=== PATIENT | female | born 1960 | race Caucasian/White ===

== ENCOUNTER 2017-02-23 20:30 | Observation (INO) ==
--- NOTE | 2017-02-23 20:37 | Emergency Department Note ---
Disposition Clinical Impression: Acute exacerbation of chronic obstructive airways disease, Hypercapnia Disposition: Admitted As Inpatient SOB HPI - General Stated Complaint: Difficulty Breathing Time Seen by Provider: 02/23/17 20:30 Source: patient Mode of arrival: private vehicle Limitations: no limitations Nursing Notes Reviewed: Yes Vital Signs Reviewed: Yes - History of Present Illness 57-year-old obese white female presents emergency department via private vehicle complaining of shortness of breath. She says that she has become progressively short of breath as he has gone on. She has been using her nebulizer treatment at home. She says she is out of her rescue inhaler. She currently does not take steroids. She says that this is the fifth To the ER in the last 2 months. She says she has not formally been diagnosed with COPD, but really has not had a chance to see a livestock nutritionist. She has an appointment to see her family doctor tomorrow opening to be referred to a livestock nutritionist. She says that she felt like she has had a mild fever all day and she has had a productive cough. She also wears oxygen at home at 3 L, but tonight started up to 4. - Related Data Home Medications Medication Instructions Recorded Confirmed Cyclobenzaprine [Flexeril] 10 mg PO TID 09/08/16 02/23/17 FLUoxetine HCl [Prozac] 20 mg PO DAILY 09/08/16 02/23/17 Fluticasone/Salmeterol [Advair 1 each IH BID 09/08/16 02/23/17 250-50 Diskus] Liraglutide [Victoza 2-Sergio] 1.8 ml SQ DAILY 09/08/16 02/23/17 Montelukast [Singulair] 10 mg PO DAILY 09/08/16 02/23/17 OxyCODONE/APAP 7.5/325 [Percocet 1 each PO Q6HR PRN 09/08/16 02/23/17 7.5/325 MG] Losartan Potassium [Cozaar] 50 mg PO DAILY 09/30/16 02/23/17 Pravastatin Sodium [Pravachol] 40 mg PO DAILY 09/30/16 02/23/17 Albuterol Neb [Proventil Neb] 2.5 mg IH QID PRN 12/01/16 02/23/17 Esomeprazole Magnesium [Nexium 22.3 mg PO DAILY 12/01/16 02/23/17 24Hr] Oxygen 2 l NS HS 12/01/16 02/23/17 Insulin Regular U-500 [HumuLIN R 60 unit SQ TIDWM 12/02/16 02/23/17 U-500] Previous Rx's Medication Instructions Recorded Ipratropium Neb [Atrovent Neb] 0.5 mg IH Q6HR #60 vial.neb 09/30/16 Albuterol Sulfate [Proair 90 mcg IH Q4-6H PRN #1 aer.pow.ba 10/05/16 Respiclick] Alprazolam [Xanax 0.25 MG Tablet] 0.25 mg PO HS PRN #7 tablet 12/06/16 Rivaroxaban [Xarelto] 20 mg PO 1700 #30 tablet 12/06/16 LORazepam [Ativan] 1 mg PO TID PRN #6 tablet 02/10/17 Allergies Allergy/AdvReac Type Severity Reaction Status Date / Time cetirizine [From [facility]] Allergy Swelling Verified 02/23/17 20:33 of Lip/Tongue/Throat codeine AdvReac Nausea Verified 02/23/17 20:33 lisinopril AdvReac Cough Verified 02/23/17 20:33 All systems ED: reviewed and negative except as stated. Constitutional: Reports: as per HPI, fever. Denies: chills, weakness, weight change Eyes: Denies: eye pain, eye discharge, vision change ENT ED: Denies: ear pain, throat pain, dental pain, hearing loss, epistaxis, congestion, dysphagia Cardiovascular: Denies: chest pain, palpitations, dyspnea on exertion, edema, syncope Respiratory: Reports: as per HPI, cough, dyspnea, wheezes, sputum production. Denies: hemoptysis Gastrointestinal: Denies: abdominal pain, nausea, vomiting, diarrhea, constipation, hematemesis, melena, hematochezia Genitourinary: Denies: dysuria, frequency, hematuria, discharge Musculoskeletal: Denies: back pain, neck pain, arthralgia, myalgia Integumentary: Denies: rash, abrasion, lesions Neurological: Denies: headache, weakness, numbness, paresthesias, confusion, abnormal gait, vertigo Psychiatric: Denies: anxiety, depression, suicidal thoughts, homicidal thoughts , auditory hallucinations, visual hallucinations Endocrine: Denies: fatigue Hematological/Lymphatic: Denies: easy bleeding, easy bruising Allergic/Immunologic: Denies: facial swelling, urticaria Past Medical History - Past Medical History Medical history: Reports: arthritis, asthma, COPD, diabetes, GERD, hyperlipidemia, hypertension, osteoporosis, venous stasis, other Surgical history: Reports: other Psychiatric history: Reports: anxiety, depression, other DIE SETTER history: Reports: non-contributory - Social History Smoking Status: Former smoker Smokeless Tobacco Status: No Alcohol use: Reports: none Drug use: Reports: none Physical Exam - General Limitations: no limitations General appearance: alert, in no apparent distress - Head Head exam: atraumatic, normocephalic, normal inspection - Eye Eye exam: Present: normal appearance, PERRL, EOMI - ENT ENT exam: normal exam, normal oropharynx, mucous membranes moist - Neck Neck exam: Present: normal inspection, full ROM, trachea midline - Chest Chest inspection: Present: normal inspection, symmetric chest wall rise. Absent : tenderness - Respiratory Respiratory exam: Present: wheezes, accessory muscle use, other (Decreased breath sounds, but equal bilaterally. Audible wheezes. No rhonchi or rales.). Absent: respiratory distress, stridor - Cardiovascular Cardiovascular exam: Present: regular rate, normal rhythm, normal heart sounds - Abdominal Exam Abdominal exam: Present: soft, Non-Tender. Absent: tenderness, distention, guarding, rebound, rigidity - Extremities Exam Extremities exam: Present: full ROM, pedal edema - Back Exam Back exam: Present: normal inspection, full ROM. Absent: tenderness - Neurological Exam Neurological exam: Present: alert, oriented X3, CN II-XII intact. Absent: motor sensory deficit - Psychiatric Psychiatric exam: Present: normal affect, normal mood - Skin Skin exam: Present: warm, dry, intact, normal color Course Vital Signs Temperature 98.2 F 02/23/17 20:30 Pulse Rate 102 02/23/17 20:30 Respiratory Rate 28 02/23/17 20:30 Blood Pressure 166/103 02/23/17 20:30 O2 Sat by Pulse Oximetry 93 02/23/17 20:30 Temperature 98.5 F 02/23/17 23:45 Pulse Rate 95 02/23/17 23:45 Respiratory Rate 20 02/23/17 23:45 Blood Pressure 131/79 02/23/17 23:45 O2 Sat by Pulse Oximetry 92 02/23/17 23:45 Oxygen Delivery Oxygen Delivery Bipap Shortness of Breath/Dyspnea - Lab Data Result diagrams: 02/23/17 20:52 02/23/17 20:52 Lab Results 02/23/17 02/23/17 02/23/17 Range/Units 20:38 20:52 20:52 WBC 11.5 H (4.3-11.1) K/mcL RBC 4.88 (3.82-4.97) M/mcL Hgb 10.3 L (11.5-15.4) g/dL Hct 37.3 (35.3-44.9) % MCV 76.4 L (83.0-100.0) fL MCH 21.1 L (28.0-33.3) pg MCHC 27.6 L (31.6-35.5) g/dL RDW 19.9 H (11.5-14.5) % Plt Count 357 (140-400) K/mcL MPV 9.9 (9.4-12.4) fL Immature Gran % 0.7 (0-4) % Seg Neutrophils % 67.6 % Lymphocytes % 20.1 % Monocytes % 8.4 % Eosinophils % 2.5 % Basophils % 0.7 % Neutrophils # 7.8 (1.6-8.9) K/mcL Lymphocytes # 2.3 (0.6-4.6) K/mcL Monocytes # 1.0 (0.0-1.3) K/mcL Eosinophils # 0.3 (0.0-0.6) K/mcL Basophils # 0.1 (0.0-0.2) K/mcL ABG pH 7.29 L (7.32-7.45) pH Units ABG pCO2 71 H* (35-45) mmHg ABG pO2 73 L (85-104) mmHg ABG HCO3 33.9 H (21-27) mEQ/L ABG Total CO2 36.0 H (20-26) mEq/L ABG O2 Saturation 92 L (95-98) % ABG Base Excess 5.0 H (-2.0 to 3.0) mEq/L Liter Flow 4 L/MIN Blood Gas Modality NC Inspired O2 36 % Sodium 139 (136-145) mEq/L Potassium 4.5 (3.5-4.5) mEq/L Chloride 98 (98-109) mEq/L Carbon Dioxide 30 H (19-29) mEq/L BUN 16 (7-20) mg/dL Creatinine 0.72 (0.57-1.11) mg/dL Est GFR ( Amer) > 60 (> 60) Est GFR (Non-Af Amer) > 60 (> 60) BUN/Creatinine Ratio 22 (6-26) Glucose 136 H (70-99) mg/dL Calculated Osmolality 291 (280-300) Calcium 9.1 (8.6-10.8) mg/dL Total Bilirubin 0.3 (0.2-1.2) mg/dL AST 13 (5-34) Units/L ALT 13 (0-55) Units/L Alkaline Phosphatase 113 (38-126) Units/L B-Natriuretic Peptide (0-100) pg/mL Serum Total Protein 7.7 (6.0-8.3) g/dL Albumin 3.1 L (3.5-5.0) g/dL Globulin 4.6 H (2.4-3.5) g/dL Albumin/Globulin Ratio 0.7 L (1.1-2.2) 02/23/17 Range/Units 20:52 WBC (4.3-11.1) K/mcL RBC (3.82-4.97) M/mcL Hgb (11.5-15.4) g/dL Hct (35.3-44.9) % MCV (83.0-100.0) fL MCH (28.0-33.3) pg MCHC (31.6-35.5) g/dL RDW (11.5-14.5) % Plt Count (140-400) K/mcL MPV (9.4-12.4) fL Immature Gran % (0-4) % Seg Neutrophils % % Lymphocytes % % Monocytes % % Eosinophils % % Basophils % % Neutrophils # (1.6-8.9) K/mcL Lymphocytes # (0.6-4.6) K/mcL Monocytes # (0.0-1.3) K/mcL Eosinophils # (0.0-0.6) K/mcL Basophils # (0.0-0.2) K/mcL ABG pH (7.32-7.45) pH Units ABG pCO2 (35-45) mmHg ABG pO2 (85-104) mmHg ABG HCO3 (21-27) mEQ/L ABG Total CO2 (20-26) mEq/L ABG O2 Saturation (95-98) % ABG Base Excess (-2.0 to 3.0) mEq/L Liter Flow L/MIN Blood Gas Modality Inspired O2 % Sodium (136-145) mEq/L Potassium (3.5-4.5) mEq/L Chloride (98-109) mEq/L Carbon Dioxide (19-29) mEq/L BUN (7-20) mg/dL Creatinine (0.57-1.11) mg/dL Est GFR ( Amer) (> 60) Est GFR (Non-Af Amer) (> 60) BUN/Creatinine Ratio (6-26) Glucose (70-99) mg/dL Calculated Osmolality (280-300) Calcium (8.6-10.8) mg/dL Total Bilirubin (0.2-1.2) mg/dL AST (5-34) Units/L ALT (0-55) Units/L Alkaline Phosphatase (38-126) Units/L B-Natriuretic Peptide 87 (0-100) pg/mL Serum Total Protein (6.0-8.3) g/dL Albumin (3.5-5.0) g/dL Globulin (2.4-3.5) g/dL Albumin/Globulin Ratio (1.1-2.2)
[2017-02-23] MEDS ORDERED: Ipratropium/Albuterol Neb 3 ML IH ONE (20:38)
[2017-02-23 21:06] LABS: Basophils # 0.1 K/mcL (0.0-0.2); Basophils % 0.7 %; Eosinophils # 0.3 K/mcL (0.0-0.6); Eosinophils % 2.5 %; Hematocrit 37.3 % (35.3-44.9); Hemoglobin 10.3 g/dL (11.5-15.4); Immature Granulocytes % 0.7 % (0-4); Lymphocytes # 2.3 K/mcL (0.6-4.6); Lymphocytes % 20.1 %; Mean Corpuscular HGB Conc 27.6 g/dL (31.6-35.5); Mean Corpuscular Hemoglobin 21.1 pg (28.0-33.3); Mean Corpuscular Volume 76.4 fL (83.0-100.0); Mean Platelet Volume 9.9 fL (9.4-12.4); Monocytes % 8.4 %; Neutrophils # 7.8 K/mcL (1.6-8.9); Platelet Count 357 K/mcL (140-400); Red Blood Count 4.88 M/mcL (3.82-4.97); Red Cell Distribution Width 19.9 % (11.5-14.5); Segmented Neutrophils % 67.6 %
[2017-02-23 21:16] LABS: Alanine Aminotransferase 13 Units/L (0-55); Albumin 3.1 g/dL (3.5-5.0); Albumin/Globulin Ratio 0.7 (1.1-2.2); Alkaline Phosphatase 113 Units/L (38-126); Aspartate Amino Transferase 13 Units/L (5-34); BUN/Creatinine Ratio 22 (6-26); Bilirubin,Total 0.3 mg/dL (0.2-1.2); Blood Urea Nitrogen 16 mg/dL (7-20); Calcium 9.1 mg/dL (8.6-10.8); Carbon Dioxide 30 mEq/L (19-29); Chloride 98 mEq/L (98-109); Globulin 4.6 g/dL (2.4-3.5); Glucose 136 mg/dL (70-99); Osmolality,Calculated 291 (280-300); Potassium 4.5 mEq/L (3.5-4.5); Sodium 139 mEq/L (136-145); Total Protein 7.7 g/dL (6.0-8.3); eGFR For African Americans > 60 (> 60); eGFR For Non-African Americans > 60 (> 60)
[2017-02-23 21:28] LABS: ABG PH 7.29 pH Units (7.32-7.45)
[2017-02-23 21:29] LABS: ABG HCO3 33.9 mEQ/L (21-27); ABG Oxygen Saturation 92 % (95-98); ABG PO2 73 mmHg (85-104)
[2017-02-23 21:30] LABS: Blood Gas Liter Flow 4 L/MIN
[2017-02-23 21:31] LABS: ABG PCO2 71 mmHg (35-45)
[2017-02-23 21:34] LABS: Blood Gas FiO2 36 %
[2017-02-24] MEDS ORDERED: *HR* OxyCODONE/APAP 7.5/325 TABLET PO PRN ×2 (01:32→02:23)
[2017-02-24] MEDS ORDERED: *HR* Morphine 2 MG/ML SYRINGE IVP PRN (01:32)
[2017-02-24] MEDS ORDERED: Ondansetron ODT 4 MG TAB.RAPDIS SL PRN (01:32)
[2017-02-24] MEDS ORDERED: *HR* Promethazine 25 MG/ML VIAL IVP PRN (01:32)
[2017-02-24] MEDS ORDERED: (Albuterol Sulfate [Proair Respiclick] 90 MCG) IH PRN (01:32)
[2017-02-24] MEDS ORDERED: *HR* LORazepam 1 MG TABLET PO PRN (01:32)
[2017-02-24] MEDS ORDERED: *HR* HYDROcodone/Acet 5/325 mg TABLET PO PRN (01:32)
[2017-02-24] MEDS ORDERED: Naloxone 0.4 MG/ML INJ IVP PRN (01:32)
[2017-02-24] MEDS ORDERED: Acetaminophen 325 MG TABLET PO PRN (01:32)
[2017-02-24] MEDS ORDERED: Ipratropium Neb 0.5 MG NEBULIZER IH SCH (04:00)
[2017-02-24] MEDS ORDERED: Albuterol 2.5 MG/3 ML NEBULIZER IH SCH (05:00)
[2017-02-24] MEDS: Ipratropium/Albuterol Neb 3 ML IH SCH ×2 (05:12→11:06)
[2017-02-24 08:27] LABS: ABG PH 7.25 pH Units (7.32-7.45)
[2017-02-24 08:28] LABS: ABG HCO3 35.9 mEQ/L (21-27); ABG PCO2 81 mmHg (35-45); ABG PO2 101 mmHg (85-104); ABG TCO2 38.4 mEq/L (20-26)
[2017-02-24 08:29] LABS: ABG Base Excess 5.7 mEq/L (-2.0 to 3.0); ABG Oxygen Saturation 96 % (95-98)
[2017-02-24] MEDS ORDERED: FLUoxetine 20 MG CAPSULE PO SCH (09:00)
[2017-02-24] MEDS ORDERED: (Liraglutide [Victoza 2-Pak] 1.8 ML) SQ SCH (09:00)
[2017-02-24] MEDS ORDERED: Budesonide/Formoterol 80/4.5 MDI IH SCH (10:00)
[2017-02-24 10:29] LABS: ABG PH 7.24 pH Units (7.32-7.45)
[2017-02-24 10:30] LABS: ABG PCO2 82 mmHg (35-45)
[2017-02-24 10:31] LABS: ABG Base Excess 4.3 mEq/L (-2.0 to 3.0); ABG HCO3 34.6 mEQ/L (21-27); ABG Oxygen Saturation 95 % (95-98); ABG PO2 93 mmHg (85-104); ABG TCO2 37.1 mEq/L (20-26)
[2017-02-24 11:47] VITALS: BP 116/72
--- NOTE | 2017-02-24 14:17 | Internal Med History&Physical ---
Date of Encounter: 02/24/17 Time of Encounter: 10:00 Assessment and Plan (1) Acute on chronic respiratory failure with hypoxia and hypercapnia Current visit: No Status: Acute (2) Emphysema of lung Current visit: No Status: Chronic Qualifiers: Emphysema type: unspecified Qualified Code(s): J43.9 - Emphysema, unspecified (3) Venous stasis ulcer of lower extremity Current visit: No Status: Chronic Qualifiers: Laterality: unspecified laterality Qualified Code(s): I83.009 - Varicose veins of unspecified lower extremity with ulcer of unspecified site (4) Morbid obesity with BMI of 60.0-69.9, adult Current visit: No Status: Chronic (5) Diabetes mellitus Current visit: No Status: Acute Qualifiers: Diabetes mellitus type: type 2 Diabetes mellitus complication status: with unspecified complications Diabetes mellitus skilled nursing insulin use: with skilled nursing use Qualified Code(s): E11.8 - Type 2 diabetes mellitus with unspecified complications; Z79.4 - detention (current) use of insulin (6) Hypercapnia Current visit: Yes Status: Acute Internal Medicine - H&P: HPI Chief complaint: Patient presented to the emergency room early this able chief complaint kathy Admitted From: Emergency Dept Plans for Post Hospital Care: Home History of present illness: Ms. Villa is a 57 year old female Patient had a history of breathing problems. She is not seen a addiction medicine physician or assistant professor of forestry. She was introduced to the floor on CPAP because her PTH was low her CO2 was high but her oxygen was stable. It was then noted that the patient was experiencing runs of V. tach and a pulse was explained to me by nursing I did not see it myself. But I did see several runs of V. tach 4-6 seconds. In addition she whirly obese and her 55 kg. Chest x-ray showed bilateral infiltrates. Past Med Surg Social Fam HX - Past Medical History Medical history: arthritis, asthma, COPD, diabetes, GERD, hyperlipidemia, hypertension, osteoporosis, venous stasis, other Psychiatric history: anxiety, depression, other - Past Surgical History Surgical History: other - Social History Smoking Status: Former smoker Smokeless Tobacco Status: No Alcohol use: none Drug use: none - Family History Mother History Unknown: Yes Father History Unknown: Yes Internal Medicine - H&P: Meds Cyclobenzaprine [Flexeril] 10 mg PO TID 09/08/16 [History] FLUoxetine HCl [Prozac] 20 mg PO DAILY 09/08/16 [History] Fluticasone/Salmeterol [Advair 250-50 Diskus] 1 each IH BID 09/08/16 [History] Liraglutide [Victoza 2-Sergio] 1.8 ml SQ DAILY 09/08/16 [History] Montelukast [Singulair] 10 mg PO DAILY 09/08/16 [History] OxyCODONE/APAP 7.5/325 [Percocet 7.5/325 MG] 1 each PO Q6HR PRN 09/08/16 [ History] Ipratropium Neb [Atrovent Neb] 0.5 mg IH Q6HR #60 vial.neb 09/30/16 [Rx] Losartan Potassium [Cozaar] 50 mg PO DAILY 09/30/16 [History] Pravastatin Sodium [Pravachol] 40 mg PO DAILY 09/30/16 [History] Albuterol Sulfate [Proair Respiclick] 90 mcg IH Q4-6H PRN #1 aer.pow.ba [Rx] Albuterol Neb [Proventil Neb] 2.5 mg IH QID PRN 12/01/16 [History] Esomeprazole Magnesium [Nexium 24Hr] 22.3 mg PO DAILY 12/01/16 [History] Oxygen 2 l NS HS 12/01/16 [History] Insulin Regular U-500 [HumuLIN R U-500] 60 unit SQ TIDWM 12/02/16 [History] Alprazolam [Xanax 0.25 MG Tablet] 0.25 mg PO HS PRN #7 tablet 12/06/16 [Rx] Rivaroxaban [Xarelto] 20 mg PO 1700 #30 tablet 12/06/16 [Rx] LORazepam [Ativan] 1 mg PO TID PRN #6 tablet 02/10/17 [Rx] Allergies cetirizine [From Zyrtec] Allergy (Verified 02/23/17 20:33) Swelling of Lip/Tongue/Throat codeine Adverse Reaction (Verified 02/23/17 20:33) Nausea lisinopril Adverse Reaction (Verified 02/23/17 20:33) Cough All Systems PM: A 10-system review of systems was performed and is negative for pertinent findings except as documented above in the HPI. - Constitutional Vitals: Temp Pulse Resp BP Pulse Ox 97.7 F 93 24 116/72 94 02/24/17 11:00 02/24/17 11:00 02/24/17 11:00 02/24/17 11:00 02/24/17 11:00 - Head Head exam: Present: atraumatic, normocephalic - Neck Neck exam general surgery: Present: supple, trachea midline. Absent: lymphadenopathy - Respiratory Respiratory exam: Present: CTAB. Absent: accessory muscle use, rales, rhonchi, wheezes - Cardiovascular Cardiovascular exam: Present: RRR, +S1, +S2. Absent: diastolic murmur, gallop, rubs, systolic murmur Internal Med - H&P Results - Labs CBC & Chem 7: 02/23/17 20:52 02/23/17 20:52 Labs: lab Does not look bad .see abgs . - ABG Interpretation ABG results: 02/24/17 02/24/17 08:05 10:10 ABG pH 7.25 L 7.24 L ABG pCO2 81 H* 82 H* ABG pO2 101 93 ABG HCO3 35.9 H 34.6 H ABG Total CO2 38.4 H 37.1 H ABG O2 Saturation 96 95 ABG Base Excess 5.7 H 4.3 H
--- NOTE | 2017-02-24 14:45 | Discharge Summary ---
Date of Encounter: 02/24/17 Time of Encounter: 14:43 - Discharge Diagnosis (1) Acute on chronic respiratory failure with hypoxia and hypercapnia Priority: Primary Status: Acute Comments: Patient was admitted for increasing shortness of breath and multiple other medical problems (2) Emphysema of lung Priority: Primary Status: Chronic Comments: There is a strong possibility but she is not seen roundsman Qualifiers: Emphysema type: unspecified Qualified Code(s): J43.9 - Emphysema, unspecified (3) Venous stasis ulcer of lower extremity Priority: Secondary Status: Chronic Comments: By his Qualifiers: Laterality: unspecified laterality Qualified Code(s): I83.009 - Varicose veins of unspecified lower extremity with ulcer of unspecified site (4) Morbid obesity with BMI of 60.0-69.9, adult Priority: Secondary Status: Chronic Comments: Noted atrophy associated with sleep apnea (5) Diabetes mellitus Priority: Secondary Status: Acute Qualifiers: Diabetes mellitus type: type 2 Diabetes mellitus complication status: with unspecified complications Diabetes mellitus operations intelligence insulin use: with fci use Qualified Code(s): E11.8 - Type 2 diabetes mellitus with unspecified complications; Z79.4 - hair specialist (current) use of insulin (6) Hypercapnia Priority: Primary Status: Acute Comments: CABG - Discharge Medications Home Medications: Cyclobenzaprine [Flexeril] 10 mg PO TID 09/08/16 [History] FLUoxetine HCl [Prozac] 20 mg PO DAILY 09/08/16 [History] Fluticasone/Salmeterol [Advair 250-50 Diskus] 1 each IH BID 09/08/16 [History] Liraglutide [Victoza 2-Sergio] 1.8 ml SQ DAILY 09/08/16 [History] Montelukast [Singulair] 10 mg PO DAILY 09/08/16 [History] OxyCODONE/APAP 7.5/325 [Percocet 7.5/325 MG] 1 each PO Q6HR PRN 09/08/16 [ History] Ipratropium Neb [Atrovent Neb] 0.5 mg IH Q6HR #60 vial.neb 09/30/16 [Rx] Losartan Potassium [Cozaar] 50 mg PO DAILY 09/30/16 [History] Pravastatin Sodium [Pravachol] 40 mg PO DAILY 09/30/16 [History] Albuterol Sulfate [Proair Respiclick] 90 mcg IH Q4-6H PRN #1 aer.pow.ba [Rx] Albuterol Neb [Proventil Neb] 2.5 mg IH QID PRN 12/01/16 [History] Esomeprazole Magnesium [Nexium 24Hr] 22.3 mg PO DAILY 12/01/16 [History] Oxygen 2 l NS HS 12/01/16 [History] Insulin Regular U-500 [HumuLIN R U-500] 60 unit SQ TIDWM 12/02/16 [History] Alprazolam [Xanax 0.25 MG Tablet] 0.25 mg PO HS PRN #7 tablet 12/06/16 [Rx] Rivaroxaban [Xarelto] 20 mg PO 1700 #30 tablet 12/06/16 [Rx] LORazepam [Ativan] 1 mg PO TID PRN #6 tablet 02/10/17 [Rx] Allergies/Adverse Reactions: Allergies cetirizine [From yrte] Allergy (Verified 02/23/17 20:33) Swelling of Lip/Tongue/Throat codeine Adverse Reaction (Verified 02/23/17 20:33) Nausea lisinopril Adverse Reaction (Verified 02/23/17 20:33) Cough Date of admission: 02/23/17 22:33 Primary care physician: Kadie Hurtado Discharging clinician: Jonn Baires Anticipated date of discharge: 02/24/17 - Patient Status Disposition: Transfer Other Condition: Serious Functional capacity at discharge: bed bound Overall status at discharge: patient is not back to baseline - Discharge Instructions Forms: ED Satisfaction Letter - Diet and Activity Activity: other Diet: advance to your usual diet, diabetic diet Interval History: Patient actually was warm and dry vital signs were stable but she was having 4- 6 second runs of V. tach occasional Gaston's which I did not notice myself. She has chest x-ray shows possible bilateral infiltrates. The patient has been increasingly short of breath. Therefore she was immediately set up for transfer [place] [facility] is not seen a roundsman or quality auditor. Hospital course: Ms. Villa is a 57 year old female She was here brief period time monitored her and rechecked her ABGs. She actually was completely alert and oriented was warm and dry to the touch. But I will work to be sure she was worse she could be seen for subspecialty care. - Time Spent with Patient Total time spent providing and/or coordinating discharge services: Less than 30 minutes - Constitutional Vitals: Temp Pulse Resp BP Pulse Ox 97.7 F 93 24 116/72 94 02/24/17 11:00 02/24/17 11:00 02/24/17 11:00 02/24/17 11:00 02/24/17 11:00 - Head Head exam: Present: atraumatic, normal inspection, normocephalic - Respiratory Respiratory exam: Present: decreased breath sounds, CTAB. Absent: accessory muscle use, rales, rhonchi, wheezes - Cardiovascular Cardiovascular exam: Present: RRR, +S1, +S2. Absent: diastolic murmur, gallop, rubs, systolic murmur
[2017-02-24] MEDS ORDERED: *HR* Rivaroxaban 10 MG TABLET PO SCH (17:00)
[2017-02-24] MEDS ORDERED: NON-FORMULARY MEDICATION 1 EACH EACH (Oxygen [Oxygen] 2 L) NS SCH (21:00)
== END 2017-02-24 14:30 | disposition short-term general hospital (02) ==
LOC: INPGRE 20:30 → EMEROOGRE 20:30 → INPGRE 23:08
PROVIDERS: ADMIT Internal Medicine; ATTEND Internal Medicine

== ENCOUNTER 2017-05-26 14:08 | Inpatient (IN) ==
[2017-05-26 14:56] LABS: Basophils # 0.1 K/mcL (0.0-0.2); Basophils % 0.8 %; Eosinophils # 0.3 K/mcL (0.0-0.6); Eosinophils % 2.6 %; Hematocrit 34.4 % (35.3-44.9); Hemoglobin 10.2 g/dL (11.5-15.4); Immature Granulocytes % 0.4 % (0-4); Lymphocytes # 2.1 K/mcL (0.6-4.6); Lymphocytes % 18.4 %; Mean Corpuscular HGB Conc 29.7 g/dL (31.6-35.5); Mean Corpuscular Hemoglobin 22.5 pg (28.0-33.3); Mean Corpuscular Volume 75.8 fL (83.0-100.0); Mean Platelet Volume 9.5 fL (9.4-12.4); Monocytes # 0.7 K/mcL (0.0-1.3); Monocytes % 6.5 %; Neutrophils # 8.1 K/mcL (1.6-8.9); Platelet Count 380 K/mcL (140-400); Red Blood Count 4.54 M/mcL (3.82-4.97); Red Cell Distribution Width 19.9 % (11.5-14.5); Segmented Neutrophils % 71.3 %
[2017-05-26 15:01] LABS: INR 1.5; Prothrombin Time 16.7 Seconds (9.4-12.1)
[2017-05-26 15:11] LABS: BUN/Creatinine Ratio 17 (6-26); Blood Urea Nitrogen 12 mg/dL (7-20); Calcium 9.4 mg/dL (8.6-10.8); Carbon Dioxide 35 mEq/L (19-29); Chloride 97 mEq/L (98-109); Glucose 108 mg/dL (70-99); Osmolality,Calculated 292 (280-300); Potassium 3.7 mEq/L (3.5-4.5); Sodium 141 mEq/L (136-145); eGFR For African Americans > 60 (> 60); eGFR For Non-African Americans > 60 (> 60)
[2017-05-26] MEDS ORDERED: Ampicillin/Sulbactam 3,000 MG in 0.9 % Sodium Chloride Mini Bag 100 ML IVPB ONE (16:41)
--- NOTE | 2017-05-26 16:45 | Emergency Department Note ---
Disposition Clinical Impression: Cellulitis of left leg Disposition: Admitted As Inpatient Condition: Fair Referrals: Kadie Hurtado MD [Primary Care Provider] - Forms: ED Satisfaction Letter Time of Disposition: 16:53 Extremity Problem HPI - General Chief complaint: ED Extremity Problem,Nontraumatic Stated complaint: leg problem Time Seen by Provider: 05/26/17 14:33 Source: patient, family Limitations: no limitations Nursing Notes Reviewed: Yes Vital Signs Reviewed: Yes - History of Present Illness HPI Narrative: Call from wound care Dr. Mckeon who indicated that he was treating a patient and has for several months for open wounds on her left lower extremity. She has a great deal of swelling. She has been oozing serous fluid for several weeks. He states that he put her on doxycycline and ciprofloxacin orally 2-1/2 weeks ago for cellulitis but she is worsened and is now very tender over the medial aspect of her left ankle he is afraid that she needs IV antibiotics and hospitalization. 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 She did not know that she had a fever. She is diabetic and states her sugars have been in the 250s range. Wound care doctor also indicated that the patient had been evaluated with Doppler for DVT one week ago that was normal. She has a history of DVT and is on several toe. She has been compliant with that medication. Pt Subjective Complaint: extremity pain, extremity swelling Onset (ago): month(s) Consistency: constant Injury Location: left, lower extremity Pain Scale: 5 Quality: burning Improves with: nothing Worsens with: use Associated symptoms: Reports: denies other symptoms - Related Data Home Medications Medication Instructions Recorded Confirmed Cyclobenzaprine [Flexeril] 10 mg PO TID 09/08/16 05/26/17 FLUoxetine HCl [Prozac] 40 mg PO DAILY 09/08/16 05/26/17 Montelukast [Singulair] 10 mg PO DAILY 09/08/16 05/26/17 OxyCODONE/APAP 7.5/325 [Percocet 1 each PO Q6HR PRN 09/08/16 05/26/17 7.5/325 MG] Losartan Potassium [Cozaar] 50 mg PO DAILY 09/30/16 05/26/17 Pravastatin Sodium [Pravachol] 40 mg PO DAILY 09/30/16 05/26/17 Albuterol Neb [Proventil Neb] 2.5 mg IH QID PRN 12/01/16 05/26/17 Esomeprazole Magnesium [Nexium 22.3 mg PO DAILY 12/01/16 05/26/17 24Hr] Oxygen 2 l NS HS 12/01/16 05/26/17 Insulin Regular U-500 [HumuLIN R 60 unit SQ TIDWM 12/02/16 05/26/17 U-500] Budesonide/Formoterol 160/4.5 2 puff IH BIDR 03/10/17 05/26/17 [Symbicort 160/4.5] Folic Acid 1 mg PO DAILY 03/10/17 05/26/17 Ipratropium/Albuterol Neb [Duoneb] 3 ml IH QID 03/10/17 05/26/17 Potassium 495 mg PO TID 03/10/17 05/26/17 Furosemide [Lasix] 40 mg PO 1700 05/26/17 05/26/17 Furosemide [Lasix] 80 mg PO DAILY 05/26/17 05/26/17 Rivaroxaban [Xarelto] 20 mg PO HS 05/26/17 05/26/17 Previous Rx's Medication Instructions Recorded Albuterol Sulfate [Proair 90 mcg IH Q4-6H PRN #1 aer.[email or web address] 10/05/16 Respiclick] Ipratropium/Albuterol Neb [Duoneb] 3 ml IH Q6HR #30 vial.neb 04/06/17 Allergies Allergy/AdvReac Type Severity Reaction Status Date / Time cetirizine [From [facility]] Allergy Swelling Verified 05/26/17 14:43 of Lip/Tongue/Throat codeine AdvReac Nausea Verified 05/26/17 14:43 lisinopril AdvReac Cough Verified 05/26/17 14:43 All systems ED: reviewed and negative except as stated. 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 Skin color is pink. Appears well hydrated, body habitus orbitally obese . Non toxic appearing. Head: Normocephalic and atraumatic. External ear exam normal Nose: Nose normal. Mouth/Throat: Uvula is midline, oropharynx is clear and moist and mucous membranes are normal. Eyes: Conjunctivae nl, extraocular motions and lids are normal. Pupils are equal , round, and reactive to light. Neck: Normal range of motion and phonation normal. Neck supple. Cardiovascular: Normal rate, regular rhythm, normal heart sounds. Pulmonary/Chest: No Respiratory distress. Respiratory Effort normal and breath sounds clear. Abdominal: Soft. Normal appearance and bowel sounds are normal. no tenderness, no masses, no guarding, no rebound Musculoskeletal: Good distal pulses. Soft compartments. Brisk cap refill. Extremities: Normal range of motion.Intact peripheral pulses. Extreme dependent bilateral lower extremity Edema. Extremity skin color nl, no calf tenderness or palpable cords. The left lower extremity has open wounds that are constantly oozing small amount of serous fluid. She is brightly erythematous, warm, and very tender to palpation over a portion of the open wound located over the medial aspect of her ankle. She has no significant discomfort with movement of her ankle no signs of osteomyelitis. She is nontender over the sole of the foot or calcaneus area. She is nontender over the region of her left calf. Oozing fluid is serous without being purulent Foot is warm and capillary refill distally is quick Neurological: Patient is alert and oriented without evidence of obvious motor deficits Skin: Skin is warm, dry and intact. color is normal, cap refill is quick Psychiatric: Patient has normal mood and affect. Patient speech is normal and behavior is normal. Thought content normal. - General Limitations: no limitations General appearance: alert, in no apparent distress - Head Head exam: atraumatic, normocephalic - Eye Eye exam: Present: normal appearance, PERRL, EOMI - ENT ENT exam: normal exam, normal oropharynx - Neck Neck exam: Present: normal inspection - Chest Chest inspection: Present: normal inspection, symmetric chest wall rise - Respiratory Respiratory exam: Present: normal lung sounds bilaterally. Absent: respiratory distress, wheezes - Cardiovascular Cardiovascular exam: Present: regular rate, normal rhythm - Abdominal Exam Abdominal exam: Present: soft, Non-Tender, normal bowel sounds - Extremities Exam Extremities exam: Present: tenderness, normal capillary refill, pedal edema. Absent: calf tenderness Course - Reevaluation(s) Reevaluation #1: She will require hospitalization since she was treated with doxycycline recently and has worsened on antibiotics orally. Treatment failure. She also had doubling of her Lasix from 80 mg to 160 daily. I spoke with Dr. Baires who is here and he indicated that he would accept the patient observation admission for treatment with IV antibiotics. We discussed orders and he would like me to enter these into the computer. He would like the Unasyn 1.5 g every 6 hours and requested that is about to be continued. Time: 16:52 Vital Signs Temperature 99.9 F H 05/26/17 14:37 Pulse Rate 83 05/26/17 14:37 Respiratory Rate 16 05/26/17 14:37 Blood Pressure 122/84 05/26/17 14:37 O2 Sat by Pulse Oximetry 90 05/26/17 14:37 Temperature 99.9 F H 05/26/17 14:37 Pulse Rate 83 05/26/17 14:37 Respiratory Rate 16 05/26/17 14:37 Blood Pressure 122/84 05/26/17 14:37 O2 Sat by Pulse Oximetry 90 05/26/17 14:37 Oxygen Delivery Oxygen Delivery Room Air Extremity Problem, Nontraumati - [facility] Narrative Medical decision making narrative: Patient has evidence of cellulitis and has had an outpatient failure of double antibiotics. She will require hospitalization. I spoke with Dr. Yu initially and then Dequan for the admission. Patient is agreeable to plan. - Medical Records Medical records reviewed: Yes I reviewed the patient's medical records. - Lab Data Lab results reviewed: Yes I reviewed the patient's lab results. Result diagrams: 05/26/17 14:45 05/26/17 14:45 Lab Results 05/26/17 05/26/17 05/26/17 Range/Units 14:45 14:45 14:45 WBC 11.4 H (4.3-11.1) K/mcL RBC 4.54 (3.82-4.97) M/mcL Hgb 10.2 L (11.5-15.4) g/dL Hct 34.4 L (35.3-44.9) % MCV 75.8 L (83.0-100.0) fL MCH 22.5 L (28.0-33.3) pg MCHC 29.7 L (31.6-35.5) g/dL RDW 19.9 H (11.5-14.5) % Plt Count 380 (140-400) K/mcL MPV 9.5 (9.4-12.4) fL Immature Gran % 0.4 (0-4) % Seg Neutrophils % 71.3 % Lymphocytes % 18.4 % Monocytes % 6.5 % Eosinophils % 2.6 % Basophils % 0.8 % Neutrophils # 8.1 (1.6-8.9) K/mcL Lymphocytes # 2.1 (0.6-4.6) K/mcL Monocytes # 0.7 (0.0-1.3) K/mcL Eosinophils # 0.3 (0.0-0.6) K/mcL Basophils # 0.1 (0.0-0.2) K/mcL PT 16.7 H (9.4-12.1) Seconds INR 1.5 VBG Lactic Acid 1.0 (0.5-2.2) mmol/L Sodium (136-145) mEq/L Potassium (3.5-4.5) mEq/L Chloride (98-109) mEq/L Carbon Dioxide (19-29) mEq/L BUN (7-20) mg/dL Creatinine (0.57-1.11) mg/dL Est GFR ( Amer) (> 60) Est GFR (Non-Af Amer) (> 60) BUN/Creatinine Ratio (6-26) Glucose (70-99) mg/dL Calculated Osmolality (280-300) Calcium (8.6-10.8) mg/dL 05/26/17 Range/Units 14:45 WBC (4.3-11.1) K/mcL RBC (3.82-4.97) M/mcL Hgb (11.5-15.4) g/dL Hct (35.3-44.9) % MCV (83.0-100.0) fL MCH (28.0-33.3) pg MCHC (31.6-35.5) g/dL RDW (11.5-14.5) % Plt Count (140-400) K/mcL MPV (9.4-12.4) fL Immature Gran % (0-4) % Seg Neutrophils % % Lymphocytes % % Monocytes % % Eosinophils % % Basophils % % Neutrophils # (1.6-8.9) K/mcL Lymphocytes # (0.6-4.6) K/mcL Monocytes # (0.0-1.3) K/mcL Eosinophils # (0.0-0.6) K/mcL Basophils # (0.0-0.2) K/mcL PT (9.4-12.1) Seconds INR VBG Lactic Acid (0.5-2.2) mmol/L Sodium 141 (136-145) mEq/L Potassium 3.7 (3.5-4.5) mEq/L Chloride 97 L (98-109) mEq/L Carbon Dioxide 35 H (19-29) mEq/L BUN 12 (7-20) mg/dL Creatinine 0.69 (0.57-1.11) mg/dL Est GFR ( Amer) > 60 (> 60) Est GFR (Non-Af Amer) > 60 (> 60) BUN/Creatinine Ratio 17 (6-26) Glucose 108 H (70-99) mg/dL Calculated Osmolality 292 (280-300) Calcium 9.4 (8.6-10.8) mg/dL
[2017-05-26] MEDS ORDERED: *HR* OxyCODONE/APAP 5/325 TABLET PO ONE (17:06)
[2017-05-26] MEDS ORDERED: Ondansetron ODT 4 MG TAB.RAPDIS SL PRN (17:45)
[2017-05-26] MEDS ORDERED: Naloxone 0.4 MG/ML INJ IVP PRN (17:45)
[2017-05-26] MEDS ORDERED: Mag Hydrox/Al Hydrox/Simeth 30 ML UDC PO PRN (17:45)
[2017-05-26] MEDS ORDERED: Acetaminophen 325 MG TABLET PO PRN (17:45)
[2017-05-26] MEDS ORDERED: POTASSIUM PO SCH (17:45)
[2017-05-26] MEDS ORDERED: Albuterol 2.5 MG/3 ML NEBULIZER IH PRN (17:45)
[2017-05-26] MEDS: Ipratropium/Albuterol Neb 3 ML IH SCH ×2 (18:20→23:50)
[2017-05-26] MEDS: Furosemide 40 MG TABLET PO SCH (18:20)
[2017-05-26] MEDS: Budesonide/Formoterol 160/4.5 MDI IH SCH (20:30)
[2017-05-26] MEDS: *HR* Rivaroxaban 10 MG TABLET PO SCH (20:30)
[2017-05-26] MEDS: *HR* OxyCODONE/APAP 7.5/325 TABLET PO PRN (20:30)
[2017-05-26] MEDS: *HR* Insulin Regular U-500 500 UNIT/ML SQ SCH (20:32)
[2017-05-26] MEDS: Ampicillin/Sulbactam 1,500 MG in 0.9 % Sodium Chloride Mini Bag 100 ML IVPB SCH (23:49)
[2017-05-27] MEDS: *HR* OxyCODONE Immed Rel 5 MG TABLET PO PRN ×2 (01:38→14:40)
[2017-05-27 05:10] LABS: Basophils # 0.1 K/mcL (0.0-0.2); Basophils % 0.5 %; Eosinophils # 0.3 K/mcL (0.0-0.6); Eosinophils % 2.3 %; Hematocrit 33.1 % (35.3-44.9); Hemoglobin 9.7 g/dL (11.5-15.4); Immature Granulocytes % 0.3 % (0-4); Lymphocytes # 1.9 K/mcL (0.6-4.6); Lymphocytes % 17.2 %; Mean Corpuscular HGB Conc 29.3 g/dL (31.6-35.5); Mean Corpuscular Hemoglobin 22.4 pg (28.0-33.3); Mean Corpuscular Volume 76.3 fL (83.0-100.0); Mean Platelet Volume 9.8 fL (9.4-12.4); Monocytes # 0.8 K/mcL (0.0-1.3); Monocytes % 6.9 %; Neutrophils # 8.2 K/mcL (1.6-8.9); Platelet Count 354 K/mcL (140-400); Red Blood Count 4.34 M/mcL (3.82-4.97); Red Cell Distribution Width 19.6 % (11.5-14.5); Segmented Neutrophils % 72.8 %
[2017-05-27 05:16] LABS: INR 1.8; Prothrombin Time 19.7 Seconds (9.4-12.1)
[2017-05-27] MEDS: Ipratropium/Albuterol Neb 3 ML IH SCH ×4 (05:16→23:25)
[2017-05-27 05:19] LABS: Activated Partial Thrombo Time 37.7 Seconds (26.0-36.0)
[2017-05-27 05:25] LABS: BUN/Creatinine Ratio 18 (6-26); Blood Urea Nitrogen 12 mg/dL (7-20); Calcium 9.1 mg/dL (8.6-10.8); Carbon Dioxide 34 mEq/L (19-29); Chloride 97 mEq/L (98-109); Glucose 65 mg/dL (70-99); Osmolality,Calculated 292 (280-300); Potassium 3.6 mEq/L (3.5-4.5); Sodium 142 mEq/L (136-145); eGFR For African Americans > 60 (> 60); eGFR For Non-African Americans > 60 (> 60)
[2017-05-27] MEDS: *HR* Insulin Regular U-500 500 UNIT/ML SQ SCH ×3 (08:39→17:13)
[2017-05-27] MEDS: Budesonide/Formoterol 160/4.5 MDI IH SCH ×2 (08:43→20:37)
[2017-05-27] MEDS: *HR* OxyCODONE/APAP 7.5/325 TABLET PO PRN ×2 (08:56→20:35)
[2017-05-27] MEDS: Furosemide 40 MG TABLET PO SCH ×2 (08:56→17:02)
[2017-05-27] MEDS: FLUoxetine 20 MG CAPSULE PO SCH (08:57)
[2017-05-27] MEDS: Folic Acid 1 MG TABLET PO SCH (08:57)
[2017-05-27] MEDS: Ampicillin/Sulbactam 1,500 MG in 0.9 % Sodium Chloride Mini Bag 100 ML IVPB SCH ×3 (08:58→23:25)
--- NOTE | 2017-05-27 11:31 | Internal Med History&Physical ---
Date of Encounter: 05/27/17 Time of Encounter: 11:28 Assessment and Plan (1) Cellulitis of left leg Current visit: Yes Status: Acute Patient apparently has increased problem with her legs this is chronic in terms of venous stasis. But she had cellulitis and low-grade temperature improved already she does have some pain and she was given pain medication. She complained of increased takes gabapentin and was not getting it.. (2) Venous (peripheral) insufficiency Current visit: No Status: Acute Noted (3) Venous ulcer Current visit: No Status: Acute Venous ulcer I did not change dressings today I will have wound care sero- Monday will decide disposition (4) Diabetes mellitus Current visit: No Status: Acute Exacerbates her problems Qualifiers: Internal Medicine - H&P: HPI Chief complaint: Patient is morbidly obese has a long history of lower extremity edema. She Admitted From: Emergency Dept Plans for Post Hospital Care: Home History of present illness: Ms. Villa is a 57 year old female Past Med Surg Social Fam HX - Past Medical History Medical history: arthritis, asthma, COPD, diabetes, GERD, hyperlipidemia, hypertension, osteoporosis, venous stasis, other Psychiatric history: anxiety, depression - Past Surgical History Surgical History: other - Social History Smoking Status: Former smoker Smokeless Tobacco Status: No Alcohol use: none Drug use: none Internal Medicine - H&P: Meds Cyclobenzaprine [Flexeril] 10 mg PO TID 09/08/16 [History] FLUoxetine HCl [Prozac] 40 mg PO DAILY 09/08/16 [History] Montelukast [Singulair] 10 mg PO DAILY 09/08/16 [History] OxyCODONE/APAP 7.5/325 [Percocet 7.5/325 MG] 1 each PO Q6HR PRN 09/08/16 [ History] Losartan Potassium [Cozaar] 50 mg PO DAILY 09/30/16 [History] Pravastatin Sodium [Pravachol] 40 mg PO DAILY 09/30/16 [History] Albuterol Sulfate [Proair Respiclick] 90 mcg IH Q4-6H PRN #1 aer.pow.ba [Rx] Albuterol Neb [Proventil Neb] 2.5 mg IH QID PRN 12/01/16 [History] Esomeprazole Magnesium [Nexium 24Hr] 22.3 mg PO DAILY 12/01/16 [History] Oxygen 2 l NS HS 12/01/16 [History] Insulin Regular U-500 [HumuLIN R U-500] 60 unit SQ TIDWM 12/02/16 [History] Budesonide/Formoterol 160/4.5 [Symbicort 160/4.5] 2 puff IH BIDR 03/10/17 [ History] Folic Acid 1 mg PO DAILY 03/10/17 [History] Ipratropium/Albuterol Neb [Duoneb] 3 ml IH QID 03/10/17 [History] Potassium 495 mg PO TID 03/10/17 [History] Ipratropium/Albuterol Neb [Duoneb] 3 ml IH Q6HR #30 vial.neb 04/06/17 [Rx] Furosemide [Lasix] 40 mg PO 1700 05/26/17 [History] Furosemide [Lasix] 80 mg PO DAILY 05/26/17 [History] Rivaroxaban [Xarelto] 20 mg PO HS 05/26/17 [History] Allergies cetirizine [From Zyrtec] Allergy (Verified 05/26/17 14:43) Swelling of Lip/Tongue/Throat codeine Adverse Reaction (Verified 05/26/17 14:43) Nausea lisinopril Adverse Reaction (Verified 05/26/17 14:43) Cough All Systems PM: A 10-system review of systems was performed and is negative for pertinent findings except as documented above in the HPI. - Constitutional Vitals: Temp Pulse Resp BP Pulse Ox 98.4 F 106 16 133/71 90 05/27/17 07:35 05/27/17 07:35 05/27/17 07:35 05/27/17 07:35 05/27/17 07:35 General appearance: Present: morbidly obese, pleasant - Head Head exam: Present: normal inspection - Neck Neck exam general surgery: Present: supple, trachea midline. Absent: lymphadenopathy - Respiratory Respiratory exam: Present: CTAB. Absent: accessory muscle use, rales, rhonchi, wheezes Additional comments: Patient wears O2 724 - Cardiovascular Cardiovascular exam: Present: RRR, +S1, +S2. Absent: diastolic murmur, gallop, rubs, systolic murmur Internal Med - H&P Results - Labs CBC & Chem 7: 05/27/17 05:00 05/27/17 05:00 Labs: Short CBC 05/27/17 Range/Units 05:00 WBC 11.2 H (4.3-11.1) K/mcL Hgb 9.7 L (11.5-15.4) g/dL Hct 33.1 L (35.3-44.9) % Plt Count 354 (140-400) K/mcL Neutrophils # 8.2 (1.6-8.9) K/mcL BMP 05/27/17 05:00 Sodium 142 Potassium 3.6 Chloride 97 L Carbon Dioxide 34 H BUN 12 Creatinine 0.67 Glucose 65 L Calcium 9.1 White count is minimally elevated 11.2 very minimal - VTE Reasons for not Prescribing Prophylaxis: Not indicated-Anticoagulated or INR therapeutic
[2017-05-27] MEDS: Gabapentin 300 MG CAPSULE PO SCH ×2 (14:04→20:35)
[2017-05-27] MEDS: *HR* Rivaroxaban 10 MG TABLET PO SCH (20:34)
[2017-05-28] MEDS: Ipratropium/Albuterol Neb 3 ML IH SCH ×4 (04:55→23:07)
[2017-05-28] MEDS: *HR* OxyCODONE/APAP 7.5/325 TABLET PO PRN ×3 (04:55→21:03)
[2017-05-28] MEDS: *HR* Insulin Regular U-500 500 UNIT/ML SQ SCH ×3 (09:05→17:35)
[2017-05-28] MEDS: Ampicillin/Sulbactam 1,500 MG in 0.9 % Sodium Chloride Mini Bag 100 ML IVPB SCH ×3 (09:05→23:07)
[2017-05-28] MEDS: *HR* OxyCODONE Immed Rel 5 MG TABLET PO PRN ×2 (09:06→17:32)
[2017-05-28] MEDS: Folic Acid 1 MG TABLET PO SCH (09:06)
[2017-05-28] MEDS: FLUoxetine 20 MG CAPSULE PO SCH (09:06)
[2017-05-28] MEDS: Gabapentin 300 MG CAPSULE PO SCH ×3 (09:07→21:03)
[2017-05-28] MEDS: Furosemide 40 MG TABLET PO SCH ×3 (09:07→19:25)
[2017-05-28] MEDS: Budesonide/Formoterol 160/4.5 MDI IH SCH ×2 (09:15→21:06)
--- NOTE | 2017-05-28 11:05 | Internal Med Progress Note ---
Date of Encounter: 05/28/17 Time of Encounter: 11:03 - Assessment and plan (1) Cellulitis of left leg Current Visit: Yes Status: Acute Assessment and plan: Patient is being treated with IV antibiotics and appropriate care to the lower extremities (2) Venous (peripheral) insufficiency Current Visit: No Status: Acute Assessment and plan: Chronic in nature. Warmly obese (3) Venous ulcer Current Visit: No Status: Acute Assessment and plan: Chronic (4) Diabetes mellitus Current Visit: No Status: Acute Assessment and plan: Blood sugars are being followed actually pretty good Qualifiers: Qualified Code(s): E11.628 - Type 2 diabetes mellitus with other skin complications; Z79.4 - detention (current) use of insulin - Time Spent With Patient less than 15 minutes - Subjective Interval history: Patient's here for lower extremity edema swelling cellulitis and chronic venous stasis. Her sugars are pretty good and wound care start follow her tomorrow and if we decide she can be discharged - Constitutional Vitals: Temp Pulse Resp BP Pulse Ox 97.4 F L 104 1 105/59 94 05/28/17 07:36 05/28/17 07:36 05/28/17 07:36 05/28/17 07:36 05/28/17 07:36 General appearance: Present: morbidly obese, pleasant - Head Head exam: Present: atraumatic, normocephalic - Respiratory Respiratory exam: Present: CTAB. Absent: accessory muscle use, rales, rhonchi, wheezes - Cardiovascular Cardiovascular exam: Present: RRR, +S1, +S2. Absent: diastolic murmur, gallop, rubs, systolic murmur Internal Medicine: Result - Labs CBC & Chem 7: 05/27/17 05:00 05/27/17 05:00 Labs: Labs okay - ABG Interpretation ABG results: PT/INR, D-dimer PT 19.7 Seconds (9.4-12.1) H 05/27/17 05:00 - VTE Reasons for not Prescribing Prophylaxis: Not indicated-Anticoagulated or INR therapeutic Consult Discharge Plan - Plan Referrals: Kadie Hurtado MD [Primary Care Provider] -
[2017-05-28] MEDS: *HR* Rivaroxaban 10 MG TABLET PO SCH (21:04)
[2017-05-29] MEDS: Ipratropium/Albuterol Neb 3 ML IH SCH ×4 (05:28→23:46)
[2017-05-29 06:01] LABS: Basophils # 0.1 K/mcL (0.0-0.2); Basophils % 0.5 %; Eosinophils # 0.3 K/mcL (0.0-0.6); Eosinophils % 2.4 %; Hematocrit 30.5 % (35.3-44.9); Hemoglobin 8.9 g/dL (11.5-15.4); Immature Granulocytes % 0.3 % (0-4); Lymphocytes # 1.8 K/mcL (0.6-4.6); Lymphocytes % 17.1 %; Mean Corpuscular HGB Conc 29.2 g/dL (31.6-35.5); Mean Corpuscular Hemoglobin 22.7 pg (28.0-33.3); Mean Corpuscular Volume 77.8 fL (83.0-100.0); Mean Platelet Volume 10.2 fL (9.4-12.4); Monocytes # 0.6 K/mcL (0.0-1.3); Monocytes % 5.9 %; Neutrophils # 7.6 K/mcL (1.6-8.9); Platelet Count 383 K/mcL (140-400); Red Blood Count 3.92 M/mcL (3.82-4.97); Red Cell Distribution Width 19.9 % (11.5-14.5); Segmented Neutrophils % 73.8 %
[2017-05-29 06:17] LABS: BUN/Creatinine Ratio 18 (6-26); Blood Urea Nitrogen 13 mg/dL (7-20); Calcium 8.8 mg/dL (8.6-10.8); Carbon Dioxide 31 mEq/L (19-29); Chloride 98 mEq/L (98-109); Glucose 94 mg/dL (70-99); Osmolality,Calculated 288 (280-300); Potassium 4.2 mEq/L (3.5-4.5); Sodium 139 mEq/L (136-145); eGFR For African Americans > 60 (> 60); eGFR For Non-African Americans > 60 (> 60)
[2017-05-29] MEDS: *HR* Insulin Regular U-500 500 UNIT/ML SQ SCH ×3 (08:19→16:56)
[2017-05-29] MEDS: Folic Acid 1 MG TABLET PO SCH (08:21)
[2017-05-29] MEDS: Budesonide/Formoterol 160/4.5 MDI IH SCH ×2 (08:21→21:05)
[2017-05-29] MEDS: FLUoxetine 20 MG CAPSULE PO SCH (08:22)
[2017-05-29] MEDS: Gabapentin 300 MG CAPSULE PO SCH ×3 (08:22→21:05)
[2017-05-29] MEDS: Ampicillin/Sulbactam 1,500 MG in 0.9 % Sodium Chloride Mini Bag 100 ML IVPB SCH ×3 (08:24→23:46)
[2017-05-29] MEDS: *HR* OxyCODONE/APAP 7.5/325 TABLET PO PRN ×2 (08:32→21:05)
[2017-05-29] MEDS: Furosemide 40 MG TABLET PO SCH ×2 (08:36→17:31)
--- NOTE | 2017-05-29 11:05 | Internal Med Progress Note ---
Date of Encounter: 05/29/17 Time of Encounter: 11:03 - Assessment and plan (1) Cellulitis of left leg Current Visit: Yes Status: Acute Assessment and plan: Continues I like some left lower extremity. I was told this looks better now. Her white blood cell count is normalizing. Unfortunately, she did have temperature of 100.4 in the past 24 hours. I recommended continuation of the IV antibiotics because she failed to antibiotics orally at home. Continue local wound care. Wound clinic plans to use Unna wrap on Monday. Blood cultures reported to me as negative. (2) Venous stasis ulcer of lower extremity Current Visit: Yes Status: Chronic Assessment and plan: Chronic venous stasis ulcer and edema left lower extremity now with his aspiration and cellulitis. Continue local wound care. Wound clinic will apply Edwina wrap on Monday Qualifiers: Laterality: unspecified laterality Qualified Code(s): I83.009 - Varicose veins of unspecified lower extremity with ulcer of unspecified site (3) History of chronic obstructive pulmonary disease Current Visit: Yes Status: Chronic Assessment and plan: Her COPD appears to be stable. She is oxygen dependent. No acute symptoms (4) Morbid obesity with BMI of 60.0-69.9, adult Current Visit: No Status: Chronic (5) History of sleep apnea Current Visit: Yes Status: Chronic (6) Diabetes mellitus Current Visit: Yes Status: Chronic Assessment and plan: Her blood sugars have been under good control while in the hospital. Her glycohemoglobin is 6.3% as tested a few months ago. Qualifiers: Qualified Code(s): E11.628 - Type 2 diabetes mellitus with other skin complications; Z79.4 - nursing home (current) use of insulin - Subjective Interval history: Patient denies any acute symptoms. She denies chest pain, palpitations, dyspnea , abdominal pain. No troubles with urinary or bowel elimination. She states her pain control is adequate for her left lower extremity. She states she was on 2 antibiotics prior to this admission and she worsened. She did have a fever 100.4 last night. She thinks she is improving and leg is a lot less swollen and less oozing. - Constitutional Vitals: Temp Pulse Resp BP Pulse Ox 99.8 F H 108 15 148/66 93 05/29/17 07:21 05/29/17 07:21 05/29/17 07:21 05/29/17 07:21 05/29/17 07:21 General appearance: Present: A&O X 3, morbidly obese, pleasant, answers questions appropriately - Respiratory Additional comments: Decreased breath sounds throughout and expiratory wheezes. No respiratory distress. No orthopnea. - Cardiovascular Cardiovascular exam: Present: RRR, +S1, +S2. Absent: systolic murmur - GI/Abdominal Additional comments: Morbidly obese. No liver enlargement no pulsatile masses. No guarding or rebound or rigidity. - Extremities Exam Additional comments: Right lower extremity does not show any significant pitting edema. She has good dorsalis pedis pulse. No calf tenderness. No bruising or skin breakdown. Left lower extremity shows most of her lower leg is edematous, erythematous, most of the skin is sloughed off/denuded and there is an indented ulcerated area measures approximate 2 cm 2 cm the left lateral calf area. The entire denuded erythematous raw area is about 20 cm 20 cm. The erythema extending proximally is about 10 cm .The foot is without lesions. Moderate edema. Good dorsalis pedis pulse. Her third toenail is partially blackened and slightly loose and there is a superficial laceration on the lateral edge from an injury. Does not look infected. Internal Medicine: Result - Labs CBC & Chem 7: 05/29/17 05:25 05/29/17 05:25 Labs: Short CBC 05/29/17 Range/Units 05:25 WBC 10.3 (4.3-11.1) K/mcL Hgb 8.9 L (11.5-15.4) g/dL Hct 30.5 L (35.3-44.9) % Plt Count 383 (140-400) K/mcL Neutrophils # 7.6 (1.6-8.9) K/mcL BMP 05/29/17 05:25 Sodium 139 Potassium 4.2 Chloride 98 Carbon Dioxide 31 H BUN 13 Creatinine 0.74 Glucose 94 Calcium 8.8 Her white blood cell count is now normal. She did have a drop in hemoglobin a bit without active bleeding noted. Her renal function is good. - ABG Interpretation ABG results: PT/INR, D-dimer PT 19.7 Seconds (9.4-12.1) H 05/27/17 05:00 - VTE Reasons for not Prescribing Prophylaxis: Not indicated-Anticoagulated or INR therapeutic Consult Discharge Plan - Plan Referrals: Kadie Hurtado MD [Primary Care Provider] -
[2017-05-29] MEDS: *HR* OxyCODONE Immed Rel 5 MG TABLET PO PRN (14:35)
[2017-05-29] MEDS: *HR* Rivaroxaban 10 MG TABLET PO SCH (21:05)
[2017-05-30] MEDS: Ipratropium/Albuterol Neb 3 ML IH SCH ×3 (05:17→17:52)
[2017-05-30 05:52] LABS: Basophils # 0.1 K/mcL (0.0-0.2); Basophils % 0.6 %; Eosinophils # 0.3 K/mcL (0.0-0.6); Eosinophils % 3.5 %; Hemoglobin 8.9 g/dL (11.5-15.4); Immature Granulocytes % 0.3 % (0-4); Lymphocytes % 21.5 %; Mean Corpuscular HGB Conc 28.7 g/dL (31.6-35.5); Mean Corpuscular Hemoglobin 22.3 pg (28.0-33.3); Mean Corpuscular Volume 77.5 fL (83.0-100.0); Mean Platelet Volume 9.2 fL (9.4-12.4); Monocytes # 0.7 K/mcL (0.0-1.3); Monocytes % 7.3 %; Neutrophils # 6.2 K/mcL (1.6-8.9); Platelet Count 330 K/mcL (140-400); Red Cell Distribution Width 19.8 % (11.5-14.5); Segmented Neutrophils % 66.8 %
[2017-05-30 06:04] LABS: BUN/Creatinine Ratio 21 (6-26); Blood Urea Nitrogen 14 mg/dL (7-20); Carbon Dioxide 34 mEq/L (19-29); Chloride 97 mEq/L (98-109); Glucose 161 mg/dL (70-99); Osmolality,Calculated 294 (280-300); Potassium 4.2 mEq/L (3.5-4.5); Sodium 140 mEq/L (136-145); eGFR For African Americans > 60 (> 60); eGFR For Non-African Americans > 60 (> 60)
[2017-05-30 06:06] LABS: Anisocytosis 1+ (Not Present)
[2017-05-30 06:07] LABS: Hypochromasia Present (Not Present); Macrocytosis Present (Not Present); Microcytosis Present (Not Present); Platelet Estimate Normal (Normal)
[2017-05-30] MEDS: *HR* OxyCODONE/APAP 7.5/325 TABLET PO PRN ×2 (07:54→21:40)
[2017-05-30] MEDS: Gabapentin 300 MG CAPSULE PO SCH ×3 (08:41→21:39)
[2017-05-30] MEDS: FLUoxetine 20 MG CAPSULE PO SCH (08:41)
[2017-05-30] MEDS: Folic Acid 1 MG TABLET PO SCH (08:42)
[2017-05-30] MEDS: *HR* Insulin Regular U-500 500 UNIT/ML SQ SCH ×3 (08:43→16:32)
[2017-05-30] MEDS: Furosemide 40 MG TABLET PO SCH ×2 (08:43→17:06)
[2017-05-30] MEDS: Ampicillin/Sulbactam 1,500 MG in 0.9 % Sodium Chloride Mini Bag 100 ML IVPB SCH ×2 (08:43→16:28)
[2017-05-30] MEDS: Budesonide/Formoterol 160/4.5 MDI IH SCH ×2 (08:55→21:42)
--- NOTE | 2017-05-30 17:47 | Internal Med Progress Note ---
Date of Encounter: 05/30/17 Time of Encounter: 17:45 - Assessment and plan (1) Cellulitis of left leg Current Visit: Yes Status: Acute Assessment and plan: Continued treatment with wrapping and tomorrow wound clinic plans to add an Unna boot. She is been afebrile over 24 hours now. We will consider discharge with oral antibiotics tomorrow depending on the wound situation, the cellulitis and temperature. (2) Venous stasis ulcer of lower extremity Current Visit: Yes Status: Chronic Qualifiers: Laterality: unspecified laterality Qualified Code(s): I83.009 - Varicose veins of unspecified lower extremity with ulcer of unspecified site (3) History of chronic obstructive pulmonary disease Current Visit: Yes Status: Chronic Assessment and plan: Breathing status is stable. She is supplemental oxygen dependent. Continue same medications. (4) Morbid obesity with BMI of 60.0-69.9, adult Current Visit: No Status: Chronic (5) History of sleep apnea Current Visit: Yes Status: Chronic (6) Diabetes mellitus Current Visit: Yes Status: Chronic Assessment and plan: Sugars have been under adequate control, some meds have been held because of low blood sugars. Better diet and decreased volume of food here makes her sugars be lower than at home. Qualifiers: Qualified Code(s): E11.628 - Type 2 diabetes mellitus with other skin complications; Z79.4 - [facility] (current) use of insulin - Subjective Interval history: Patient thinks she is doing well. Except for the uncomfortable bed, she is not having any new symptoms. She denies a cardiac type chest pain. She denies any exacerbation of her breathing, she is oxygen dependent 24 hours per day now. She denies any GI or symptoms. Her pain control is adequate for her left lower extremity. The gabapentin is very helpful for her, though she may be able to use a higher dose. - Constitutional Vitals: Temp Pulse Resp BP Pulse Ox 98.4 F 86 16 153/70 96 05/30/17 16:10 05/30/17 16:10 05/30/17 16:10 05/30/17 16:10 05/30/17 16:10 General appearance: Present: A&O X 3, morbidly obese, pleasant, answers questions appropriately - Respiratory Additional comments: Diminished but clear breath sounds. No wheezing or rhonchi or cough - Cardiovascular Additional comments: Underlying regular rate and rhythm but frequent ectopic beats are noted sometimes in trigeminy or quadrigeminy pattern. 1/6 systolic murmur. - Extremities Exam Additional comments: Her left lower extremity was dressed and wrapped and I did not evaluate today. Internal Medicine: Result - Labs CBC & Chem 7: 05/30/17 05:35 05/30/17 05:35 Labs: Short CBC 05/30/17 Range/Units 05:35 WBC 9.3 (4.3-11.1) K/mcL Hgb 8.9 L (11.5-15.4) g/dL Hct 31.0 L (35.3-44.9) % Plt Count 330 (140-400) K/mcL Neutrophils # 6.2 (1.6-8.9) K/mcL BMP 05/30/17 05:35 Sodium 140 Potassium 4.2 Chloride 97 L Carbon Dioxide 34 H BUN 14 Creatinine 0.67 Glucose 161 H Calcium 9.0 Labs have been reviewed. White blood cell count is normal. Electrolytes are normal. Minimal glucose elevation. - ABG Interpretation ABG results: PT/INR, D-dimer PT 19.7 Seconds (9.4-12.1) H 05/27/17 05:00 - VTE Reasons for not Prescribing Prophylaxis: Not indicated-Anticoagulated or INR therapeutic Consult Discharge Plan - Plan Referrals: Kadie Hurtado MD [Primary Care Provider] - 06/07/17 1:45 pm (follow up appointment)
--- NOTE | 2017-05-30 17:53 | Discharge Summary ---
Date of Encounter: 05/31/17 Time of Encounter: 12:58 - Discharge Diagnosis (1) Cellulitis of left leg Priority: Primary Status: Acute Comments: Patient was admitted after being evaluated in the wound clinic and then sent to the emergency room for worsening cellulitis of the left lower extremity, worsening of the ulcer and having failed outpatient treatment with wound care and antibiotics orally. She was admitted by Dr. Baires and placed on Unasyn. The white blood cell count was elevated on admission. Now it has normalized. Her blood cultures are negative. She had low-grade fever 100.4 a day or 2 ago, no fever in nearly 48 hours. Her pain control has been adequate. Her dressings have now been changed to an Unna boot applied by wound clinic staff. She will be discharged on Augmentin and will follow up with the wound clinic (2) Venous stasis ulcer of lower extremity Priority: Secondary Status: Chronic Qualifiers: Laterality: unspecified laterality Qualified Code(s): I83.009 - Varicose veins of unspecified lower extremity with ulcer of unspecified site (3) History of chronic obstructive pulmonary disease Priority: Secondary Status: Chronic Comments: Supplemental oxygen-dependent COPD. Pelvic status remained stable. We continued her usual medications. (4) Morbid obesity with BMI of 60.0-69.9, adult Priority: Secondary Status: Chronic (5) History of sleep apnea Priority: Secondary Status: Chronic (6) Diabetes mellitus Priority: Secondary Status: Chronic Comments: Her sugars have been under good control. Her evening medications have been held because of sugars being on the low end. She acknowledges that she is eating less here and eating a better diabetic diet here. Qualifiers: Diabetes mellitus type: type 2 Diabetes mellitus complication status: with skin complications Diabetes mellitus complication detail: with other skin ulcer Diabetes mellitus long term acute care registered nurse insulin use: with skilled nursing use Qualified Code(s): E11.622 - Type 2 diabetes mellitus with other skin ulcer; Z79.4 - USP (current) use of insulin - Discharge Medications Prescriptions: Amoxicillin/Clavulanate [Augmentin] 875 mg PO BIDWM #14 tablet Home Medications: Cyclobenzaprine [Flexeril] 10 mg PO TID 09/08/16 [History] FLUoxetine HCl [Prozac] 40 mg PO DAILY 09/08/16 [History] Montelukast [Singulair] 10 mg PO DAILY 09/08/16 [History] OxyCODONE/APAP 7.5/325 [Percocet 7.5/325 MG] 1 each PO Q6HR PRN 09/08/16 [ History] Losartan Potassium [Cozaar] 50 mg PO DAILY 09/30/16 [History] Pravastatin Sodium [Pravachol] 40 mg PO DAILY 09/30/16 [History] Albuterol Sulfate [Proair Respiclick] 90 mcg IH Q4-6H PRN #1 aer.pow.ba [Rx] Albuterol Neb [Proventil Neb] 2.5 mg IH QID PRN 12/01/16 [History] Esomeprazole Magnesium [Nexium 24Hr] 22.3 mg PO DAILY 12/01/16 [History] Oxygen 2 l NS HS 12/01/16 [History] Insulin Regular U-500 [HumuLIN R U-500] 60 unit SQ TIDWM 12/02/16 [History] Budesonide/Formoterol 160/4.5 [Symbicort 160/4.5] 2 puff IH BIDR 03/10/17 [ History] Folic Acid 1 mg PO DAILY 03/10/17 [History] Potassium 495 mg PO TID 03/10/17 [History] Ipratropium/Albuterol Neb [Duoneb] 3 ml IH Q6HR #30 vial.neb 04/06/17 [Rx] Furosemide [Lasix] 40 mg PO 1700 05/26/17 [History] Furosemide [Lasix] 80 mg PO DAILY 05/26/17 [History] Rivaroxaban [Xarelto] 20 mg PO HS 05/26/17 [History] Acetaminophen [Tylenol] 650 mg PO Q6HR PRN tab 05/31/17 [Rx] Amoxicillin/Clavulanate [Augmentin] 875 mg PO BIDWM #14 tablet 05/31/17 [Rx] Gabapentin [Neurontin] 300 mg PO TID 05/31/17 [Rx] Allergies/Adverse Reactions: Allergies cetirizine [From Zyrtec] Allergy (Verified 05/26/17 14:43) Swelling of Lip/Tongue/Throat codeine Adverse Reaction (Verified 05/26/17 14:43) Nausea lisinopril Adverse Reaction (Verified 05/26/17 14:43) Cough Procedures/tests Complete & Pending: Laboratory Results - last 24 hr 05/29/17 05/29/17 05/30/17 07:38 20:20 05:35 WBC 9.3 RBC 4.00 Hgb 8.9 L Hct 31.0 L MCV 77.5 L MCH 22.3 L MCHC 28.7 L RDW 19.8 H Plt Count 330 MPV 9.2 L Immature Gran % 0.3 Seg Neutrophils % 66.8 Lymphocytes % 21.5 Monocytes % 7.3 Eosinophils % 3.5 Basophils % 0.6 Neutrophils # 6.2 Lymphocytes # 2.0 Monocytes # 0.7 Eosinophils # 0.3 Basophils # 0.1 Platelet Estimate Normal Hypochromasia Present A Anisocytosis 1+ A Microcytosis Present A Macrocytosis Present A Sodium Potassium Chloride Carbon Dioxide BUN Creatinine Est GFR ( Amer) Est GFR (Non-Af Amer) BUN/Creatinine Ratio Glucose POC Glucose 119 H 161 H Calculated Osmolality Calcium 05/30/17 05:35 WBC RBC Hgb Hct MCV MCH MCHC RDW Plt Count MPV Immature Gran % Seg Neutrophils % Lymphocytes % Monocytes % Eosinophils % Basophils % Neutrophils # Lymphocytes # Monocytes # Eosinophils # Basophils # Platelet Estimate Hypochromasia Anisocytosis Microcytosis Macrocytosis Sodium 140 Potassium 4.2 Chloride 97 L Carbon Dioxide 34 H BUN 14 Creatinine 0.67 Est GFR ( Amer) > 60 Est GFR (Non-Af Amer) > 60 BUN/Creatinine Ratio 21 Glucose 161 H POC Glucose Calculated Osmolality 294 Calcium 9.0 Date of admission: 05/29/17 18:53 Primary care physician: Kadie Hurtado Discharging clinician: Jonn Ryan Anticipated date of discharge: 05/31/17 - Patient Status Disposition: Home, Self-Care Condition: Fair Functional capacity at discharge: uses cane/walker (Also uses electric scooter) Overall status at discharge: patient is not back to baseline - Discharge Instructions Follow Up With: Kadie Hurtado MD [Primary Care Provider] - 06/07/17 1:45 pm (follow up appointment) Additional Instructions: Follow up with wound clinic as planned - Diet and Activity Activity: ambulate only with your walker (Or electric scooter) Interval History: Today she feels ready for discharge. She denies a cardiac respiratory symptoms that are new. She has been able to ambulate with her cane or walker to and from the bathroom. This is about her activity level at home. Her left lower extremity discomfort is stable. She is having an Unna boot applied by wound clinic today and they will follow her up. Hospital course: Ms. Villa is a 57 year old female with long-standing history of venous stasis dermatitis of left lower extremity was admitted having failed outpatient treatment with the wound clinic staff, antibiotics and conservative measures. She was admitted to the hospital with elevated white blood cell count, developed fever 100.4. Blood cultures were negative. She was placed on Unasyn intravenously. Her wound was treated and had frequent dressing changes. Unna boot was applied by wound clinic on day of discharge. She the above diagnoses for other information. - Time Spent with Patient Total time spent providing and/or coordinating discharge services: - Constitutional Vitals: Temp Pulse Resp BP Pulse Ox 98.4 F 86 16 153/70 96 05/30/17 16:10 05/30/17 16:10 05/30/17 16:10 05/30/17 16:10 05/30/17 16:10 General appearance: Present: A&O X 3, morbidly obese, pleasant, answers questions appropriately - Respiratory Additional comments: diminished breath sounds throughout but clear. No respiratory distress. She is wearing her oxygen. - Cardiovascular Cardiovascular exam: Present: RRR, +S1, +S2 - Extremities Exam Additional comments: Her left lower extremity continues to show the open raw area measuring at least 20 cm 20 cm. The left lateral calf depressed ulcer area of 2 cm is now nearly healed. However, she has a 1 cm oozing/weeping ulcer in the posterior calf area now. There are no linear streaks up her leg. Her left third toe has healing laceration from her trauma at home. The nail is still intact. - VTE Reasons for not Prescribing Prophylaxis: Not indicated-Anticoagulated or INR therapeutic
[2017-05-30] MEDS: *HR* Rivaroxaban 10 MG TABLET PO SCH (21:39)
[2017-05-31] MEDS: Ipratropium/Albuterol Neb 3 ML IH SCH ×3 (00:48→12:02)
[2017-05-31] MEDS: Ampicillin/Sulbactam 1,500 MG in 0.9 % Sodium Chloride Mini Bag 100 ML IVPB SCH ×2 (00:48→08:31)
[2017-05-31] MEDS: *HR* OxyCODONE Immed Rel 5 MG TABLET PO PRN (02:09)
[2017-05-31] MEDS: *HR* OxyCODONE/APAP 7.5/325 TABLET PO PRN ×2 (06:25→12:40)
[2017-05-31] MEDS: *HR* Insulin Regular U-500 500 UNIT/ML SQ SCH ×2 (08:31→12:03)
[2017-05-31] MEDS: Folic Acid 1 MG TABLET PO SCH (08:33)
[2017-05-31] MEDS: FLUoxetine 20 MG CAPSULE PO SCH (08:34)
[2017-05-31] MEDS: Gabapentin 300 MG CAPSULE PO SCH (08:34)
[2017-05-31] MEDS: Budesonide/Formoterol 160/4.5 MDI IH SCH (08:36)
[2017-05-31 12:00] VITALS: BP 123/63
[2017-05-31] MEDS: Furosemide 40 MG TABLET PO SCH (12:04)
== END 2017-05-31 14:35 | disposition home or self-care (01) | DRG 638 ==
LOC: INPGRE 14:08 → EMEROOGRE 14:08 → INPGRE 17:52
PROVIDERS: ADMIT Internal Medicine; ATTEND Internal Medicine

== ENCOUNTER 2017-09-18 21:22 | Inpatient (IN) ==
--- NOTE | 2017-09-18 21:39 | Emergency Department Note ---
Disposition Clinical Impression: Congestive heart failure, Hypoxia, Venous stasis ulcer of lower extremity, Morbid obesity with BMI of 60.0-69.9, adult, Diabetes mellitus, COPD exacerbation Disposition: Admitted As Inpatient Condition: Fair Referrals: NONE,PCP [Primary Care Provider] - Time of Disposition: 22:35 ([facility]) SOB HPI - General Stated Complaint: sob Time Seen by Provider: 09/18/17 21:25 Source: patient, EMS Mode of arrival: EMS Limitations: physical limitation (size and edema) Nursing Notes Reviewed: Yes Vital Signs Reviewed: Yes - History of Present Illness Patient was at home having increasing shortness of breath dyspnea and anxiety EMS arrived the patient had low O2 sats was placed on 100% nonrebreather which brought her O2 saturations up to 96% patient was noted to be hypertensive patient tells EMS though that they recently stopped her Lasix where she was taking 80 in the morning 40 in the afternoon down to 40 and 20 a states that she has felt bloated distended in the abdominal region having increasing abdominal girth denies a fever chills lightheadedness dizziness denies any diarrhea but has dyspnea with activity patient states that she is having increasing swelling edema like she says that she would think that she has gained about 20 pounds here last couple days as any additional complaints at this time Patient currently on Bactrim for recurrent cellulitis of the lower extremities left worse than right Pt Subjective Complaint: shortness of breath Onset (ago): hour(s) Severity: moderate, severe Consistency/Duration: gradually worsening Improves with: oxygen, bronchodilators Worsens with: exertion Known history of: congestive heart failure, other (Patient states they recently took her off Lasix she really was not sure why she said it was told because her leg in improved and was taken off by the PMR physician) Associated symptoms: Reports: chest pain, wheezing, orthopnea. Denies: pain with inspiration, fever, cough, sputum production, lower extremity pain, polyuria, polydipsia, parasthesias, palpitations, hemoptysis, diaphoresis, nausea/vomiting, syncope, abdominal pain, rash, sense of impending doom Treatment prior to arrival: oxygen, bronchodilator Cough present: No Sputum production: No - Related Data Home Medications Medication Instructions Recorded Confirmed Cyclobenzaprine [Flexeril] 10 mg PO TID 09/08/16 07/20/17 FLUoxetine HCl [Prozac] 40 mg PO DAILY 09/08/16 07/20/17 Montelukast [Singulair] 10 mg PO DAILY 09/08/16 07/20/17 OxyCODONE/APAP 7.5/325 [Percocet 1 each PO Q6HR PRN 09/08/16 07/20/17 7.5/325 MG] Losartan Potassium [Cozaar] 50 mg PO DAILY 09/30/16 07/20/17 Pravastatin Sodium [Pravachol] 40 mg PO DAILY 09/30/16 07/20/17 Albuterol Neb [Proventil Neb] 2.5 mg IH QID PRN 12/01/16 07/20/17 Esomeprazole Magnesium [Nexium 22.3 mg PO DAILY 12/01/16 07/20/17 24Hr] Oxygen 2 l NS HS 12/01/16 07/20/17 Folic Acid 1 mg PO DAILY 03/10/17 07/20/17 Potassium 99 mg PO BID 03/10/17 07/20/17 Furosemide [Lasix] 40 mg PO 1700 05/26/17 07/20/17 Furosemide [Lasix] 80 mg PO DAILY 05/26/17 07/20/17 Albuterol Sulfate [Proair 2 puff IH Q4-6H PRN 07/20/17 07/20/17 Respiclick] Ferrous Sulfate [Ferrous Sulfate] 325 mg PO DAILY 07/20/17 07/20/17 Fluticasone/Salmeterol [Advair 1 puff IH BID 07/20/17 07/20/17 100-50 Diskus] Insulin Human Regular [HumuLIN R] 10 unit SQ HS 07/20/17 07/20/17 Insulin Human Regular [HumuLIN R] 14 unit SQ BID 07/20/17 07/20/17 Multivitamin [One Daily Essential] 1 tab PO DAILY 07/20/17 07/20/17 Ranitidine HCl [Zantac] 150 mg PO DAILY PRN 07/20/17 07/20/17 Previous Rx's Medication Instructions Recorded Acetaminophen [Tylenol] 650 mg PO Q6HR PRN tab 05/31/17 Gabapentin [Neurontin] 300 mg PO TID 05/31/17 Allergies Allergy/AdvReac Type Severity Reaction Status Date / Time cetirizine [From Zyrtec] Allergy Swelling Verified 11/20/17 21:42 of Lip/Tongue/Throat codeine AdvReac Nausea Verified 09/18/17 21:42 lisinopril AdvReac Cough Verified 09/18/17 21:42 All systems ED: reviewed and negative except as stated. Review of Systems: As Per HPI Constitutional: Denies: fever, chills, weakness Eyes: Denies: eye pain, eye discharge ENT ED: Denies: ear pain, throat pain Cardiovascular: Reports: palpitations, dyspnea on exertion. Denies: chest pain Respiratory: Reports: dyspnea Gastrointestinal: Reports: nausea, other (bloating). Denies: abdominal pain, vomiting Genitourinary: Denies: urgency, dysuria, frequency Musculoskeletal: Denies: back pain, neck pain Integumentary: Denies: rash, abrasion Neurological: Denies: headache Psychiatric: Denies: anxiety Endocrine: Denies: fatigue Hematological/Lymphatic: Denies: easy bleeding Allergic/Immunologic: Denies: facial swelling Past Medical History - Past Medical History Attestation: Yes The following information was validated with the patient. Source: patient, old records reviewed, nursing notes reviewed Medical history: Reports: arthritis, asthma, COPD, diabetes, GERD, hyperlipidemia, hypertension, osteoporosis, venous stasis, other Surgical history: Reports: other Psychiatric history: Reports: anxiety, depression [employer] history: Reports: non-contributory - Social History Smoking Status: Former smoker Smokeless Tobacco Status: No Alcohol use: Reports: none Drug use: Reports: none Physical Exam - General Limitations: no limitations General appearance: alert, in no apparent distress, anxious, obese - Head Head exam: atraumatic, normocephalic, normal inspection - Eye Eye exam: Present: normal appearance, PERRL, EOMI - ENT ENT exam: normal exam, normal oropharynx, mucous membranes moist, normal external ear exam - Neck Neck exam: Present: normal inspection, full ROM, trachea midline - Chest Chest inspection: Present: normal inspection, symmetric chest wall rise - Respiratory Respiratory exam: Present: normal lung sounds bilaterally - Cardiovascular Cardiovascular exam: Present: tachycardia, normal heart sounds - Abdominal Exam Abdominal exam: Present: soft, Non-Tender, distention, normal bowel sounds. Absent: mass, pulsatile mass - Expanded Upper Extremity Exam Shoulder exam: Present: normal inspection, full ROM Arm exam: Present: normal inspection, full ROM Elbow exam: Present: normal inspection, full ROM Forearm/Wrist exam: Present: normal inspection, full ROM Hand exam: Present: normal inspection, full ROM Vascular exam: Normal: capillary refill, radial pulse - Expanded Lower Extremity Exam Hip/Pelvis exam: Present: normal inspection, full ROM Upper leg exam: Present: normal inspection, full ROM Knee exam: Present: normal inspection, full ROM Lower leg exam: Present: normal inspection, full ROM, swelling (Left leg erythematous and blistering in comparison to the right lower extremity appears to be slightly more swollen on the left than on the right) Ankle exam: Present: normal inspection, full ROM, swelling Foot/toe exam: Present: normal inspection, full ROM Neurovascular/Tendon exam: Present: normal capillary refill, normal fine/light touch. Absent: motor deficit, sensory deficit, tendon deficit Gait: observed and normal - Back Exam Back exam: Present: normal inspection, full ROM. Absent: muscle spasm - Neurological Exam Neurological exam: Present: alert, oriented X3, CN II-XII intact, normal gait - Psychiatric Psychiatric exam: Present: normal affect, normal mood - Skin Skin exam: Present: warm, dry, intact, normal color Course Course Narrative: Seen and examined multiple labs ordered awaiting laboratory results for further evaluation Vital Signs Temperature 100.6 F H 09/18/17 21:25 Pulse Rate 117 09/18/17 21:25 Respiratory Rate 28 09/18/17 21:25 Blood Pressure 135/64 09/18/17 21:25 O2 Sat by Pulse Oximetry 94 09/18/17 21:25 Temperature 100.6 F H 09/18/17 21:25 Pulse Rate 117 09/18/17 21:25 Respiratory Rate 28 09/18/17 21:25 Blood Pressure 135/64 09/18/17 21:25 O2 Sat by Pulse Oximetry 94 09/18/17 21:25 Oxygen Delivery Oxygen Delivery Nasal Cannula Shortness of Breath/Dyspnea - Differential Diagnosis Likely: acute exacerbation of chronic obstructive airways disease, congestive heart failure, pneumonia - Medical Records Medical records reviewed: Yes I reviewed the patient's medical records. - Lab Data Lab results reviewed: Yes I reviewed the patient's lab results. Result diagrams: 09/18/17 21:40 09/18/17 21:40 Lab Results 11/20/17 11/20/17 11/20/17 Range/Units 21:40 21:40 21:40 WBC 12.0 H (4.3-11.1) K/mcL RBC 4.72 (3.82-4.97) M/mcL Hgb 12.0 (11.5-15.4) g/dL Hct 38.4 (35.3-44.9) % MCV 81.4 L (83.0-100.0) fL MCH 25.4 L (28.0-33.3) pg MCHC 31.3 L (31.6-35.5) g/dL RDW 24.0 H (11.5-14.5) % Plt Count 273 (140-400) K/mcL MPV 9.9 (9.4-12.4) fL Immature Gran % 0.6 (0-4) % Seg Neutrophils % 77.8 % Lymphocytes % 14.1 % Monocytes % 5.5 % Eosinophils % 1.3 % Basophils % 0.7 % Neutrophils # 9.3 H (1.6-8.9) K/mcL Lymphocytes # 1.7 (0.6-4.6) K/mcL Monocytes # 0.7 (0.0-1.3) K/mcL Eosinophils # 0.2 (0.0-0.6) K/mcL Basophils # 0.1 (0.0-0.2) K/mcL Platelet Estimate Normal (Normal) Anisocytosis 2+ A (Not Present) PT 11.7 (9.4-12.1) Seconds INR 1.1 APTT 30.2 (26.0-36.0) Seconds Sodium 140 (136-145) mEq/L Potassium 4.0 (3.5-4.5) mEq/L Chloride 100 (98-109) mEq/L Carbon Dioxide 27 (19-29) mEq/L BUN 9 (7-20) mg/dL Creatinine 0.75 (0.57-1.11) mg/dL Est GFR ( Amer) > 60 (> 60) Est GFR (Non-Af Amer) > 60 (> 60) BUN/Creatinine Ratio 12 (6-26) Glucose 162 H (70-99) mg/dL Calculated Osmolality 292 (280-300) Calcium 9.3 (8.6-10.8) mg/dL Troponin I (0-0.03) ng/mL B-Natriuretic Peptide (0-100) pg/mL 09/18/17 09/18/17 Range/Units 21:40 21:40 WBC (4.3-11.1) K/mcL RBC (3.82-4.97) M/mcL Hgb (11.5-15.4) g/dL Hct (35.3-44.9) % MCV (83.0-100.0) fL MCH (28.0-33.3) pg MCHC (31.6-35.5) g/dL RDW (11.5-14.5) % Plt Count (140-400) K/mcL MPV (9.4-12.4) fL Immature Gran % (0-4) % Seg Neutrophils % % Lymphocytes % % Monocytes % % Eosinophils % % Basophils % % Neutrophils # (1.6-8.9) K/mcL Lymphocytes # (0.6-4.6) K/mcL Monocytes # (0.0-1.3) K/mcL Eosinophils # (0.0-0.6) K/mcL Basophils # (0.0-0.2) K/mcL Platelet Estimate (Normal) Anisocytosis (Not Present) PT (9.4-12.1) Seconds INR APTT (26.0-36.0) Seconds Sodium (136-145) mEq/L Potassium (3.5-4.5) mEq/L Chloride (98-109) mEq/L Carbon Dioxide (19-29) mEq/L BUN (7-20) mg/dL Creatinine (0.57-1.11) mg/dL Est GFR ( Amer) (> 60) Est GFR (Non-Af Amer) (> 60) BUN/Creatinine Ratio (6-26) Glucose (70-99) mg/dL Calculated Osmolality (280-300) Calcium (8.6-10.8) mg/dL Troponin I 0.02 (0-0.03) ng/mL B-Natriuretic Peptide 76 (0-100) pg/mL - Radiology Data Radiology results reviewed: Yes I reviewed the patient's radiology results. - EKG Data EKG attestation: Yes I reviewed and interpreted this EKG. EKG results narrative: Sinus tach rate 117 OR 157 QRS 106 QT to 96 axis LVII Critical Care Time Critical Care Time: No
[2017-09-18 21:47] LABS: Basophils # 0.1 K/mcL (0.0-0.2); Basophils % 0.7 %; Eosinophils # 0.2 K/mcL (0.0-0.6); Eosinophils % 1.3 %; Hematocrit 38.4 % (35.3-44.9); Immature Granulocytes % 0.6 % (0-4); Lymphocytes # 1.7 K/mcL (0.6-4.6); Lymphocytes % 14.1 %; Mean Corpuscular HGB Conc 31.3 g/dL (31.6-35.5); Mean Corpuscular Hemoglobin 25.4 pg (28.0-33.3); Mean Corpuscular Volume 81.4 fL (83.0-100.0); Mean Platelet Volume 9.9 fL (9.4-12.4); Monocytes # 0.7 K/mcL (0.0-1.3); Monocytes % 5.5 %; Platelet Count 273 K/mcL (140-400); Red Blood Count 4.72 M/mcL (3.82-4.97); Segmented Neutrophils % 77.8 %
[2017-09-18 21:51] LABS: Neutrophils # 9.3 K/mcL (1.6-8.9)
[2017-09-18 21:52] LABS: INR 1.1; Prothrombin Time 11.7 Seconds (9.4-12.1)
[2017-09-18 21:55] LABS: Activated Partial Thrombo Time 30.2 Seconds (26.0-36.0)
[2017-09-18 22:01] LABS: BUN/Creatinine Ratio 12 (6-26); Blood Urea Nitrogen 9 mg/dL (7-20); Calcium 9.3 mg/dL (8.6-10.8); Carbon Dioxide 27 mEq/L (19-29); Chloride 100 mEq/L (98-109); Glucose 162 mg/dL (70-99); Osmolality,Calculated 292 (280-300); Sodium 140 mEq/L (136-145); eGFR For African Americans > 60 (> 60); eGFR For Non-African Americans > 60 (> 60)
[2017-09-18 22:06] LABS: Anisocytosis 2+ (Not Present); Platelet Estimate Normal (Normal)
[2017-09-18] MEDS ORDERED: Bumetanide 1 MG/4 ML VIAL IVP ONE (22:35)
[2017-09-18] MEDS ORDERED: Albuterol 2.5 MG/3 ML NEBULIZER IH PRN (23:07)
[2017-09-18] MEDS ORDERED: Naloxone 0.4 MG/ML INJ IVP PRN (23:07)
[2017-09-18] MEDS ORDERED: NON-FORMULARY MEDICATION 1 EACH EACH (Albuterol Sulfate [Proair Respiclick] 2 PUFF) IH PRN (23:07)
[2017-09-18] MEDS ORDERED: Dextrose Gel 15 GM PO PRN ×2 (23:07)
[2017-09-18] MEDS ORDERED: Famotidine 20 MG TABLET PO PRN (23:07)
[2017-09-18] MEDS ORDERED: D5% in Water 1,000 ML IVC PRN (23:07)
[2017-09-18] MEDS ORDERED: *HR* Dextrose 50 % in Water (Syg) 50 ML SYRINGE IVP PRN (23:07)
[2017-09-18] MEDS ORDERED: Acetaminophen 325 MG TABLET PO PRN (23:07)
[2017-09-19] MEDS: *HR* OxyCODONE/APAP 7.5/325 TABLET PO PRN ×4 (00:11→20:46)
[2017-09-19] MEDS: Ipratropium 1 PUFF INHALER IH SCH ×7 (00:12→23:45)
[2017-09-19 04:52] LABS: Basophils # 0.1 K/mcL (0.0-0.2); Basophils % 0.7 %; Eosinophils # 0.2 K/mcL (0.0-0.6); Eosinophils % 1.7 %; Hematocrit 36.2 % (35.3-44.9); Hemoglobin 11.3 g/dL (11.5-15.4); Immature Granulocytes % 0.3 % (0-4); Lymphocytes # 2.9 K/mcL (0.6-4.6); Lymphocytes % 25.5 %; Mean Corpuscular HGB Conc 31.2 g/dL (31.6-35.5); Mean Corpuscular Hemoglobin 25.6 pg (28.0-33.3); Mean Corpuscular Volume 82.1 fL (83.0-100.0); Monocytes # 0.9 K/mcL (0.0-1.3); Monocytes % 7.7 %; Neutrophils # 7.2 K/mcL (1.6-8.9); Platelet Count 266 K/mcL (140-400); Red Blood Count 4.41 M/mcL (3.82-4.97); Red Cell Distribution Width 24.2 % (11.5-14.5); Segmented Neutrophils % 64.1 %
[2017-09-19 05:12] LABS: Anisocytosis 2+ (Not Present); BUN/Creatinine Ratio 13 (6-26); Blood Urea Nitrogen 9 mg/dL (7-20); Calcium 9.2 mg/dL (8.6-10.8); Carbon Dioxide 28 mEq/L (19-29); Chloride 101 mEq/L (98-109); Glucose 143 mg/dL (70-99); Osmolality,Calculated 293 (280-300); Platelet Estimate Normal (Normal); Potassium 3.9 mEq/L (3.5-4.5); Sodium 141 mEq/L (136-145); eGFR For African Americans > 60 (> 60); eGFR For Non-African Americans > 60 (> 60)
[2017-09-19 05:52] LABS: INR 1.1; Prothrombin Time 11.9 Seconds (9.4-12.1)
[2017-09-19 05:55] LABS: Activated Partial Thrombo Time 29.3 Seconds (26.0-36.0)
[2017-09-19] MEDS: *HR* Enoxaparin 40 MG/0.4 ML SYRINGE SQ SCH (06:17)
[2017-09-19] MEDS: Gabapentin 300 MG CAPSULE PO SCH ×4 (08:33→22:06)
[2017-09-19] MEDS: Furosemide 40 MG TABLET PO SCH (08:43)
[2017-09-19] MEDS: Bumetanide 1 MG/4 ML VIAL IVP SCH ×2 (08:43→18:03)
[2017-09-19] MEDS: Multivit/Ca/Min/Fe/FA 1 TAB TABLET PO SCH (08:43)
[2017-09-19] MEDS: POTASSIUM 99MG PO SCH ×2 (08:44→20:36)
[2017-09-19] MEDS: FLUoxetine 20 MG CAPSULE PO SCH (08:44)
[2017-09-19] MEDS: Folic Acid 1 MG TABLET PO SCH (08:44)
[2017-09-19] MEDS: Insulin LISPRO 300 UNITS/3 ML VIAL SQ SCH ×6 (08:52→20:47)
[2017-09-19] MEDS: Budesonide/Formoterol 80/4.5 MDI IH SCH ×2 (11:10→20:48)
--- NOTE | 2017-09-19 11:34 | Internal Med History&Physical ---
Date of Encounter: 09/19/17 Time of Encounter: 11:32 Assessment and Plan (1) Acute on chronic respiratory failure with hypoxia and hypercapnia Current visit: Yes Status: Acute I will patient has had a history of reactive airway disease and came in very short of breath. ER report. She states she been increasingly short of breath the last 3 days and has had the lower her Lasix. She feels a lot more bloated and swollen (2) Emphysema of lung Current visit: No Status: Chronic Chronic history Qualifiers: Emphysema type: panlobular Qualified Code(s): J43.1 - Panlobular emphysema (3) Morbid obesity with BMI of 60.0-69.9, adult Current visit: Yes Status: Chronic Noted and she has been counseled about weight loss but her mobility is very limited (4) Diabetes mellitus Current visit: Yes Status: Chronic Noted will follow blood sugars but she will be on steroids which will exacerbate her blood sugars Qualifiers: Diabetes mellitus type: type 2 Diabetes mellitus complication status: with skin complications Diabetes mellitus complication detail: with other skin ulcer Diabetes mellitus oil heaterman insulin use: with longterm use Qualified Code(s): E11.622 - Type 2 diabetes mellitus with other skin ulcer; Z79.4 - oil heaterman (current) use of insulin; Z79.4 - oil heaterman (current) use of insulin; Z79.4 - [facility] (current) use of insulin; Z79.4 - [facility] (current) use of insulin Internal Medicine - H&P: HPI Chief complaint: Patient complains of feeling bloated full lower extremity edema increasing. Admitted From: Emergency Dept Plans for Post Hospital Care: Home History of present illness: Ms. Villa is a 57 year old female Past Med Surg Social Fam HX - Past Medical History Source: old records reviewed Medical history: arthritis, asthma, COPD, diabetes, GERD, hyperlipidemia, hypertension, osteoporosis, venous stasis, other Psychiatric history: anxiety, depression - Past Surgical History Surgical History: other - Social History Smoking Status: Former smoker Smokeless Tobacco Status: No Alcohol use: none Drug use: none - Family History Brother Living Status: Father Living Status: Mother Living Status: Hx Family Respiratory Disorders: Yes Internal Medicine - H&P: Meds Cyclobenzaprine [Flexeril] 10 mg PO TID PRN 09/08/16 [History] FLUoxetine HCl [Prozac] 40 mg PO DAILY 09/08/16 [History] Montelukast [Singulair] 10 mg PO DAILY 09/08/16 [History] OxyCODONE/APAP 7.5/325 [Percocet 7.5/325 MG] 1 each PO Q6HR PRN 09/08/16 [ History] Losartan Potassium [Cozaar] 50 mg PO DAILY 09/30/16 [History] Pravastatin Sodium [Pravachol] 40 mg PO DAILY 09/30/16 [History] Albuterol Neb [Proventil Neb] 2.5 mg IH QID PRN 12/01/16 [History] Esomeprazole Magnesium [Nexium 24Hr] 22.3 mg PO DAILY 12/01/16 [History] Oxygen 2 l NS HS 12/01/16 [History] Folic Acid 1 mg PO DAILY 03/10/17 [History] Furosemide [Lasix] 10 mg PO 1700 05/26/17 [History] Furosemide [Lasix] 20 mg PO DAILY 05/26/17 [History] Fluticasone/Salmeterol [Advair 100-50 Diskus] 1 puff IH BID 07/20/17 [History] Insulin Human Regular [HumuLIN R] 10 unit SQ HS 07/20/17 [History] Insulin Human Regular [HumuLIN R] 14 unit SQ BID 07/20/17 [History] Multivitamin [One Daily Essential] 1 tab PO DAILY 07/20/17 [History] Ranitidine HCl [Zantac] 150 mg PO DAILY PRN 07/20/17 [History] 3 Allergy/AdvReac Type Severity Reaction Status Date / Time cetirizine [From [facility]] Allergy Swelling Verified 09/18/17 21:42 of Lip/Tongue/Throat codeine AdvReac Nausea Verified 09/18/17 21:42 lisinopril AdvReac Cough Verified 09/18/17 21:42 All Systems PM: A 10-system review of systems was performed and is negative for pertinent findings except as documented above in the HPI. - Constitutional Constitutional: weight gain, no anorexia, no chills, no excessive sweating, no fatigue, no fever(s), no falls, no lethargy, no malaise, no night sweats, no weight loss - EENT Eyes: no blurry vision, no change in vision, no decreased night vision, no diplopia, no discharge, no dry eye, no floaters, no irritation, no itchy eyes, no loss of peripheral vision, no loss of vision, no pain, no photophobia, no seeing flashes, no spots in vision, no tunnel vision, no other visual disturbances Nose, mouth and throat: no bleeding gums, no change in voice, no dental pain, no dry mouth, no dysphagia, no epistaxis, no facial pain, no hoarseness, no lip swelling, no mouth pain, no nasal congestion, no nasal discharge, no nasal obstruction, no neck mass, no neck pain, no nose pain, no odynophagia, no post- nasal drip, no sinus pain, no sinus pressure, no sore throat, no throat swelling , no tongue swelling - Breasts Breasts: no change in shape, no mass, no pain, no nipple discharge, no skin changes, no swelling - Cardiovascular Cardiovascular ROS IM: no chest pain, no claudication, no diaphoresis, no dyspnea, no dyspnea on exertion, no edema, no irregular heart rhythm, no lightheadedness, no orthopnea, no palpitations, no paroxysmal nocturnal dyspnea , no syncope - Respiratory Respiratory: no cough, no dyspnea, no wheezing, no snoring, no stridor, no pain on inspiration, no chest congestion, no excessive phlegm production, no change in phlegm color, no pain with cough - Gastrointestinal Gastrointestinal: no abdominal pain, no belching, no bloating, no change in bowel habits, no change in stool character, no coffee ground emesis, no constipation, no cramping, no diarrhea, no dyspepsia, no dysphagia, no early satiety, no excessive flatus, no fecal incontinence, no heartburn, no hematemesis, no hematochezia, no loose stools, no melena, no nausea, no odynophagia, no tenesmus, no vomiting - Genitourinary Genitourinary: no abnormal menses, no abnormal vaginal bleeding, no amenorrhea, no breast change in shape, no breast mass, no breast pain, no breast skin changes, no breast swelling, no change in libido, no change in urinary stream, no difficulty conceiving, no difficulty urinating, no difficulty voiding, no dysmenorrhea, no dyspareunia, no dysuria, no flank pain, no genital lesions, no genital pruritis, no hematuria, no hot flashes, no light periods, no menorrhagia , no metrorrhagia, no nipple discharge, no nocturia, no pelvic pain, no post void dribbling, no prolapse symptoms, no sexual dysfunction, no urinary frequency, no urinary hesitancy, no urinary incontinence, no urinary urgency, no vaginal discharge, no vaginal dryness, no vaginal odor, no vaginal pruritis Additional comments: N/A - Musculoskeletal Musculoskeletal ROS IM: no joint swelling, no limited range of motion, no muscle cramps, no muscle weakness, no myalgias, no neck pain, no numbness, no stiffness, no tingling - Integumentary Integumentary IM: erythema, skin ulcer, sores, no new lesions, no non-healing lesions, no pruritus, no rash, no unusual bruising, no jaundice - Neurological Neurological ROS: no abnormal gait, no abnormal hearing, no abnormal movements, no burning sensations, no lack of coordination, no loss of vision, no memory loss, no numbness, no paresthesias, no radicular pain, no restless legs - Psychiatric Psychiatric: no abnormal sleep pattern, no anhedonia, no anxiety, no auditory hallucinations, no behavioral changes, no change in appetite, no change in libido, no confusion, no depression, no difficulty concentrating, no hallucinations, no homicidal ideation, no hopelessness, no irritability, no memory loss, no mood swings, no panic attacks, no paranoia, no suicidal ideation , no visual hallucinations, no tactile - Endocrine Endocrine IM: no cold intolerance, no deeping of the voice, no excessive sweating, no fatigue, no flushing, no heat intolerance, no polydipsia, no polyphagia, no polyuria - Hematologic/Lymphatic Hematologic/Lymphatic: no easy bleeding, no easy bruising, no lymphadenopathy - Allergic/Immunologic Allergic/Immunologic: no tongue swelling, no throat swelling, no itchy eyes, no seasonal rhinorrhea, no uticaria, no wheezing, no GI upset with certain foods, no lip swelling - Constitutional Vitals: Temp Pulse Resp BP Pulse Ox 98.2 F 96 16 177/76 94 09/19/17 11:05 09/19/17 11:05 09/19/17 11:11 09/19/17 11:05 09/19/17 11:05 General appearance: Present: cooperative, A&O X 3, morbidly obese, pleasant - Head Head exam: Present: atraumatic, normal inspection, normocephalic - Neck Neck exam general surgery: Present: supple, trachea midline. Absent: lymphadenopathy - Respiratory Respiratory exam: Present: decreased breath sounds, CTAB, prolonged expiratory phase. Absent: accessory muscle use, rales, rhonchi, wheezes - Cardiovascular Cardiovascular exam: Present: RRR, +S1, +S2. Absent: diastolic murmur, gallop, rubs, systolic murmur - GI/Abdominal GI/Abdominal exam: Present: normal bowel sounds, soft, no peritoneal signs. Absent: distended, tenderness Internal Med - H&P Results - Labs CBC & Chem 7: 09/19/17 04:30 09/19/17 04:30 Labs: Short CBC 09/19/17 Range/Units 04:30 WBC 11.2 H (4.3-11.1) K/mcL Hgb 11.3 L (11.5-15.4) g/dL Hct 36.2 (35.3-44.9) % Plt Count 266 (140-400) K/mcL Neutrophils # 7.2 (1.6-8.9) K/mcL BMP 09/19/17 04:30 Sodium 141 Potassium 3.9 Chloride 101 Carbon Dioxide 28 BUN 9 Creatinine 0.72 Glucose 143 H Calcium 9.2 Lab noted
[2017-09-19 11:44] LABS: ABG Base Excess 6 mEq/L (-2 to 3); ABG HCO3 33 mEq/L (21-27); ABG Oxygen Saturation 94 % (95-98); ABG PCO2 57 mmHg (35-45); ABG PH 7.37 pH Units (7.32-7.45); ABG PO2 75 mmHg (85-104); ABG TCO2 35 mEq/L (20-26)
[2017-09-19] MEDS: Furosemide 20 MG TABLET PO SCH (15:56)
--- NOTE | 2017-09-19 20:37 | Electrocardiograph Report ---
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
[2017-09-19] MEDS ORDERED: NON-FORMULARY MEDICATION 1 EACH EACH (Oxygen [Oxygen] 2 L) NS SCH (21:00)
[2017-09-20] MEDS: Ipratropium 1 PUFF INHALER IH SCH ×5 (04:10→20:39)
[2017-09-20] MEDS: *HR* OxyCODONE/APAP 7.5/325 TABLET PO PRN (04:56)
[2017-09-20] MEDS: *HR* Enoxaparin 40 MG/0.4 ML SYRINGE SQ SCH (05:38)
[2017-09-20] MEDS: Multivit/Ca/Min/Fe/FA 1 TAB TABLET PO SCH (08:25)
[2017-09-20] MEDS: FLUoxetine 20 MG CAPSULE PO SCH (08:25)
[2017-09-20] MEDS: Gabapentin 300 MG CAPSULE PO SCH ×3 (08:25→20:41)
[2017-09-20] MEDS: Folic Acid 1 MG TABLET PO SCH (08:26)
[2017-09-20] MEDS: Furosemide 40 MG TABLET PO SCH (08:26)
[2017-09-20] MEDS: Bumetanide 1 MG/4 ML VIAL IVP SCH ×2 (08:26→18:25)
[2017-09-20] MEDS: Insulin LISPRO 300 UNITS/3 ML VIAL SQ SCH ×6 (08:28→20:50)
[2017-09-20] MEDS: POTASSIUM 99MG PO SCH ×2 (08:28→20:43)
[2017-09-20] MEDS: Budesonide/Formoterol 80/4.5 MDI IH SCH ×2 (08:39→20:37)
--- NOTE | 2017-09-20 14:49 | Internal Med Progress Note ---
Date of Encounter: 09/20/17 Time of Encounter: 14:43 - Assessment and plan (1) Acute on chronic respiratory failure with hypoxia and hypercapnia Current Visit: Yes Status: Acute Assessment and plan: Patient has this chronically (2) Emphysema of lung Current Visit: No Status: Chronic Assessment and plan: Significant COPD but much improved today Qualifiers: Emphysema type: panlobular Qualified Code(s): J43.1 - Panlobular emphysema (3) Morbid obesity with BMI of 60.0-69.9, adult Current Visit: Yes Status: Chronic Assessment and plan: Obviously a major contributing factor (4) Diabetes mellitus Current Visit: Yes Status: Chronic Assessment and plan: Blood sugars really are reasonably well controlled Qualifiers: Diabetes mellitus type: type 2 Diabetes mellitus complication status: with skin complications Diabetes mellitus complication detail: with other skin ulcer Diabetes mellitus buttermaker continuous churn insulin use: with custodial use Qualified Code(s): E11.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 She could not recall lunchbox and she does talk to people who are not in the room by she pretty much better color is good swelling is down and rule out wheezing. Still decreased air movement - Constitutional Vitals: Temp Pulse Resp BP Pulse Ox 97.4 F L 106 22 148/75 94 09/20/17 14:29 09/20/17 14:29 09/20/17 14:29 09/20/17 14:29 09/20/17 14:29 General appearance: Present: cooperative, A&O X 3, morbidly obese, pleasant - Head Head exam: Present: atraumatic, normocephalic - Neck Neck exam general surgery: Present: supple, trachea midline. Absent: lymphadenopathy - Respiratory Respiratory exam: Present: CTAB. Absent: accessory muscle use, rales, rhonchi, wheezes - Cardiovascular Cardiovascular exam: Present: RRR, +S1, +S2. Absent: diastolic murmur, gallop, rubs, systolic murmur - GI/Abdominal GI/Abdominal exam: Present: normal bowel sounds, soft, no peritoneal signs. Absent: distended, tenderness Internal Medicine: Result - Labs CBC & Chem 7: 09/19/17 04:30 09/19/17 04:30 Labs: Normal - ABG Interpretation ABG results: ABG ABG pH 7.37 pH Units (7.32-7.45) 09/19/17 11:41 ABG pCO2 57 mmHg (35-45) H 09/19/17 11:41 ABG pO2 75 mmHg (85-104) L 09/19/17 11:41 ABG O2 Saturation 94 % (95-98) L 09/19/17 11:41 PT/INR, D-dimer PT 11.9 Seconds (9.4-12.1) 09/19/17 04:30 - VTE Reasons for not Prescribing Prophylaxis: Treatment not Indicated - Low risk for VTE Consult Discharge Plan - Plan
[2017-09-20] MEDS ORDERED: *HR* LORazepam 0.5 MG TABLET PO PRN (15:06)
[2017-09-20] MEDS: Furosemide 20 MG TABLET PO SCH (17:12)
[2017-09-20 17:58] LABS: ABG Base Excess 6 mEq/L (-2 to 3); ABG HCO3 34 mEq/L (21-27); ABG Oxygen Saturation 93 % (95-98); ABG PCO2 57 mmHg (35-45); ABG PH 7.38 pH Units (7.32-7.45); ABG PO2 71 mmHg (85-104); ABG TCO2 35 mEq/L (20-26)
[2017-09-21] MEDS: Ipratropium 1 PUFF INHALER IH SCH ×3 (00:31→11:35)
[2017-09-21] MEDS: *HR* OxyCODONE/APAP 7.5/325 TABLET PO PRN (00:43)
[2017-09-21] MEDS: *HR* Enoxaparin 40 MG/0.4 ML SYRINGE SQ SCH (06:20)
[2017-09-21 08:32] LABS: ABG Base Excess 6 mEq/L (-2 to 3); ABG HCO3 35 mEq/L (21-27); ABG Oxygen Saturation 92 % (95-98); ABG PCO2 75 mmHg (35-45); ABG PH 7.28 pH Units (7.32-7.45); ABG PO2 75 mmHg (85-104); ABG TCO2 38 mEq/L (20-26)
[2017-09-21] MEDS: Insulin LISPRO 300 UNITS/3 ML VIAL SQ SCH ×3 (09:11→13:52)
[2017-09-21] MEDS: POTASSIUM 99MG PO SCH (09:13)
[2017-09-21] MEDS: Bumetanide 1 MG/4 ML VIAL IVP SCH (10:13)
[2017-09-21] MEDS: Furosemide 40 MG TABLET PO SCH (11:38)
[2017-09-21] MEDS: Gabapentin 300 MG CAPSULE PO SCH (11:38)
[2017-09-21] MEDS: FLUoxetine 20 MG CAPSULE PO SCH (11:38)
[2017-09-21] MEDS: Folic Acid 1 MG TABLET PO SCH (11:45)
[2017-09-21] MEDS: Multivit/Ca/Min/Fe/FA 1 TAB TABLET PO SCH (11:46)
[2017-09-21] MEDS: Budesonide/Formoterol 80/4.5 MDI IH SCH (11:46)
--- NOTE | 2017-09-21 11:52 | Internal Med Progress Note ---
Date of Encounter: 09/21/17 Time of Encounter: 08:50 - Assessment and plan (1) Acute on chronic respiratory failure with hypoxia and hypercapnia Current Visit: Yes Status: Acute Assessment and plan: Apparently chronic. Will try to treat with BiPAP as she is worsening in terms of hypercarbia. (2) Congestive heart failure Current Visit: Yes Status: Acute Assessment and plan: Apparently difficult to manage. Qualifiers: Congestive heart failure type: unspecified congestive heart failure type Congestive heart failure chronicity: acute on chronic Qualified Code(s): I50.9 - Heart failure, unspecified (3) History of sleep apnea Current Visit: No Status: Chronic Assessment and plan: She has BiPAP at home and has been non-compliant with that, per history. She has this pattern while observed. I suspect that she has multfactorial problems and that her [place] worsens her CHF and COPD. We have discontinued her Ativan to avoid respiratory suppression and have used haloperidol as sedation, instead. Homefully, this will allow staff to keep her on her BiPAP. If this doesn't improve, she will need consideration for intubation and so will need to be transferred to another facility.I have explained to nursing and we will try this approach for a few hours. We will also look for other etiologies of metal status change such as a urine culture and analysis, etc. WBC is not very elevated and chemistry is unrmarkable, making [place] the most likely source of problems. (4) COPD exacerbation Current Visit: Yes Status: Acute Assessment and plan: See above. - Subjective Interval history: No significant interaction. See Examination. - Constitutional Vitals: Temp Pulse Resp BP Pulse Ox 98.2 F 105 24 149/78 96 09/21/17 07:00 09/21/17 07:00 09/21/17 07:00 09/21/17 07:00 09/21/17 07:00 General appearance: Present: morbidly obese Exam: Intermittently agitated and tremulous then calm and hypoventilates. - Head Head exam: Present: atraumatic, normocephalic - Eye Eye exam: Present: PERRL, conjuntiva pink, sclera anicteric Pupils: Present: PERRL - Neck Neck exam general surgery: Present: lymphadenopathy, supple, trachea midline Additional comments: Morbidly obese so cannot detet JVD. - Respiratory Respiratory exam: Present: CTAB. Absent: accessory muscle use, rales, wheezes Additional comments: Increased expiratory phase. Tachypneic cycles with hypoventilation. She is on O2 at 4L by nasal cannula. She is intermittently agitatated , followed by calm, followed by hypoventilation, followed by a few second episodes of apnea, followed by a near gasp, agitation, and tachypnea to 35-40 respiratory rate. This is consistent with central sleep apnea-type pattern. - Cardiovascular Cardiovascular exam: Present: RRR, tachycardia. Absent: diastolic murmur, systolic murmur Additional comments: Mildly tachycardic to 110-120s. - GI/Abdominal GI/Abdominal exam: Present: normal bowel sounds, soft, no peritoneal signs. Absent: distended, tenderness Additional comments: Morbidly obese and therefore difficult to [alpate deeply. - Extremities Exam Extremities exam: Present: warm. Absent: calf tenderness, cyanotic, pedal edema Additional comments: No demonstrable calf tenderness. - Neurological Exam Neurological exam: Present: CN II-XII intact, no focal deficits. Absent: facial droop Additional comments: Patient is destant and opens her eyes only a slpit second when spoken to or when tactile stimulation provided.. Internal Medicine: Result - Labs CBC & Chem 7: 09/19/17 04:30 09/19/17 04:30 - ABG Interpretation ABG results: ABG ABG pH 7.28 pH Units (7.32-7.45) L 09/21/17 08:24 ABG pCO2 75 mmHg (35-45) H* 09/21/17 08:24 ABG pO2 75 mmHg (85-104) L 09/21/17 08:24 ABG O2 Saturation 92 % (95-98) L 09/21/17 08:24 PT/INR, D-dimer PT 11.9 Seconds (9.4-12.1) 09/19/17 04:30 - VTE Reasons for not Prescribing Prophylaxis: Treatment not Indicated - Low risk for VTE Consult Discharge Plan - Plan Referrals: NONE,PCP [Primary Care Provider] -
[2017-09-21 13:31] VITALS: BP 126/82
--- NOTE | 2017-09-26 15:53 | Discharge Summary ---
Date of Encounter: 09/21/17 Time of Encounter: 15:51 - Discharge Diagnosis (1) Acute on chronic respiratory failure with hypoxia and hypercapnia Priority: Primary Status: Acute (2) Emphysema of lung Priority: Primary Status: Chronic Qualifiers: Emphysema type: panlobular Qualified Code(s): J43.1 - Panlobular emphysema (3) Morbid obesity with BMI of 60.0-69.9, adult Status: Chronic (4) Diabetes mellitus Status: Chronic Qualifiers: Diabetes mellitus type: type 2 Diabetes mellitus complication status: with skin complications Diabetes mellitus complication detail: with other skin ulcer Diabetes mellitus assisted insulin use: with ferry terminal 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5/325 MG] 1 each PO Q6HR PRN 09/08/16 [ History] Pravastatin Sodium [Pravachol] 40 mg PO DAILY 09/30/16 [History] Albuterol Neb [Proventil Neb] 2.5 mg IH QID PRN 12/01/16 [History] Esomeprazole Magnesium [Nexium 24Hr] 22.3 mg PO DAILY 12/01/16 [History] Oxygen 2 l NS HS 12/01/16 [History] Folic Acid 1 mg PO DAILY 03/10/17 [History] Fluticasone/Salmeterol [Advair 100-50 Diskus] 1 puff IH BID 07/20/17 [History] Insulin Human Regular [HumuLIN R] 10 unit SQ HS 07/20/17 [History] Insulin Human Regular [HumuLIN R] 14 unit SQ BIDWM 07/20/17 [History] Multivitamin [One Daily Essential] 1 tab PO DAILY 07/20/17 [History] Ranitidine HCl [Zantac] 150 mg PO DAILY PRN 07/20/17 [History] Acetaminophen [Tylenol] 650 mg PO Q6HR PRN tablet 09/24/17 [Rx] Albuterol Neb [Proventil Neb] 2.5 mg IH Q2H PRN inhsol 09/24/17 [Rx] Furosemide [Lasix] 80 mg PO BID #60 tablet 09/24/17 [Rx] Ipratropium/Albuterol Neb [Duoneb] 3 ml IH QIDR inhsol 09/24/17 [Rx] Levothyroxine [Synthroid] 75 mcg PO DAILY 30 Days #30 tablet 09/24/17 [Rx] Losartan [Cozaar] 25 mg PO DAILY 30 Days #30 tablet 09/24/17 [Rx] Melatonin 3 mg PO HS #30 tablet 09/24/17 [Rx] Metoprolol [Lopressor] 50 mg PO BID #60 tablet 09/24/17 [Rx] Allergies/Adverse Reactions: 3 Allergy/AdvReac Type Severity Reaction Status Date / Time cetirizine [From [facility]] Allergy Swelling Verified 09/22/17 09:52 of Lip/Tongue/Throat codeine AdvReac Nausea Verified 09/22/17 09:52 lisinopril AdvReac Cough Verified 09/22/17 09:52 Date of admission: 09/19/17 13:43 Primary care physician: PCP NONE Discharging clinician: Jonn Baires Anticipated date of discharge: 09/21/17 - Patient Status Condition: Serious Functional capacity at discharge: bed bound Overall status at discharge: patient is not back to baseline - Discharge Instructions Follow Up With: NONE,PCP [Primary Care Provider] - Forms: ED Satisfaction Letter - Diet and Activity Activity: wear oxygen at all times Diet: diabetic diet Interval History: I was in here on the day of transfer. Dr. Shields felt she was decompensating and transferred her to [facility]. Christine eventually did discharge her home Hospital course: Ms. Villa is a 57 year old female Patient came in for . She is morbidly obese with BMI of 60 or so she has lower extremity chronic venous stasis. She is diabetic. She has BiPAP. She is also confused and talking to people that are not in the room. A very complicated situation. hypercapnic hypoxic respiratory failure - Time Spent with Patient Total time spent providing and/or coordinating discharge services: Less than 30 minutes - Constitutional Vitals: Temp Pulse Resp BP Pulse Ox 98.1 F 144 22 126/82 92 09/21/17 12:30 09/21/17 12:30 09/21/17 12:30 09/21/17 12:30 09/21/17 12:30 General appearance: Present: morbidly obese - Head Head exam: Present: atraumatic, normal inspection, normocephalic - Neck Neck exam general surgery: Present: supple, trachea midline. Absent: lymphadenopathy - VTE Reasons for not Prescribing Prophylaxis: Treatment not Indicated - Low risk for VTE
== END 2017-09-21 15:00 | disposition short-term general hospital (02) | DRG 189 ==
LOC: EMEROOGRE 21:22 → INPGRE 21:22
PROVIDERS: ADMIT Internal Medicine; ATTEND Internal Medicine

== ENCOUNTER 2018-04-10 10:02 | Observation (INO) ==
[2018-04-10] MEDS ORDERED: Ipratropium/Albuterol Neb 3 ML IH ONE (10:24)
--- NOTE | 2018-04-10 10:30 | Emergency Department Note ---
Disposition Clinical Impression: COPD (chronic obstructive pulmonary disease) Disposition: Admitted As Inpatient Condition: Fair General Adult HPI - General Chief complaint: ED Shortness of Breath/Dyspnea Stated complaint: short of breath Time Seen by Provider: 04/10/18 10:05 Source: patient Nursing Notes Reviewed: Yes Vital Signs Reviewed: Yes - History of Present Illness HPI Narrative: Patient presents today with CC of: short of breath Patient describes issue began around to 3 days ago the patient started having some shortness of breath. She says that she has been having some cough and upper respiratory symptoms with congestion she has also had a low-grade fever. She has had some chest pain over the last several days last time she had it was Monday. She also had on Monday she recently was sharp but then resolved. She has not had any vomiting or diarrhea. She has been eating normally. She said she recently ran out of her cholesterol medication. She thought maybe she was having blood sugar problems so she drank some orange juice and it seemed to make her feel better but her oxygen saturation was low when the squad came to evaluate her. They were concerned because she had continued shortness of breath and so they brought her here to the emergency department. Normally she is on 2 L of nasal cannula oxygen. Patient does have risk factors for cardiac disease in that she is 58 years old. She has elevated cholesterol, diabetes. She quit smoking 2 years ago. She weighs 330 pounds. Patient also says she thinks she has congestive heart failure sometimes because of her fluid shift and weight shift. Pain Scale: 0 - Related Data Home Medications Medication Instructions Recorded Confirmed Albuterol Neb [Proventil Neb] 2.5 mg IH QID 04/10/18 04/10/18 Albuterol Sulfate [Albuterol 2 puff IH Q4HR PRN 04/10/18 04/10/18 Inhaler] Cyclobenzaprine [Flexeril] 10 mg PO TID 04/10/18 04/10/18 Esomeprazole Magnesium [Nexium] 20 mg PO DAILY 04/10/18 04/10/18 FLUoxetine HCl [Fluoxetine HCl] 40 mg PO DAILY 04/10/18 04/10/18 FLUoxetine HCl [Prozac] 40 mg PO DAILY 04/10/18 04/10/18 Fluticasone/Salmeterol [Advair 1 each IH BID 04/10/18 04/10/18 100-50 Diskus] Folic Acid 1 mg PO DAILY 04/10/18 04/10/18 Furosemide [Lasix] 80 mg PO BID 04/10/18 04/10/18 Gabapentin [Neurontin] 300 mg PO TID 04/10/18 04/10/18 Insulin Human Regular [HumuLIN R] 0 unit SQ TID 04/10/18 04/10/18 Ipratropium Neb [Atrovent Neb] 0.5 mg IH Q6HR 04/10/18 04/10/18 Levothyroxine Sodium [Tirosint] 75 mcg PO DAILY 04/10/18 04/10/18 Losartan Potassium [Cozaar] 50 mg PO DAILY 04/10/18 04/10/18 Melatonin 3 mg PO HS 04/10/18 04/10/18 Metoprolol [Lopressor] 50 mg PO BID 04/10/18 04/10/18 Montelukast [Singulair] 10 mg PO DAILY 04/10/18 04/10/18 Multivitamin [One Daily Essential] 1 each PO DAILY 04/10/18 04/10/18 Oxycodone HCl/Acetaminophen 1 each PO QID 04/10/18 04/10/18 [Percocet 7.5-325 mg Tablet] Oxygen 3 l .ROUTE AD 04/10/18 04/10/18 Pravastatin Sodium [Pravachol] 80 mg PO DAILY 04/10/18 04/10/18 Promethazine [Phenergan] 25 mg PO BID PRN 04/10/18 04/10/18 Allergies Allergy/AdvReac Type Severity Reaction Status Date / Time cetirizine [From [facility]] Allergy Swelling Verified 04/10/18 12:38 of Lip/Tongue/Throat codeine AdvReac Nausea Verified 04/10/18 12:38 lisinopril AdvReac Cough Verified 04/10/18 12:38 All systems ED: reviewed and negative except as stated. 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 I have reviewed initial and available nurse's notes for the patient. The patient 's medications, allergies, and medical history was reviewed. Family, Social & Surg histories were reviewed and are not relevant except as noted above in the history of present illness, or below in the respective specific section. I have reviewed and agree with all vital signs synchronously available in EMR at the time of this dictation. Times documented are the time of computer entry, are not necessarily the time the event occurred. Physical EXAM: General ~ Constitutional: Conscious & cooperative , generally healthy but morbid obese appearance Head: NCAT Eyes: Sclera white , conjunctiva clear , PERRL, non-icteric ENT : L Tympanic membrane normal color and landmarks R Tympanic membrane normal color and landmarks Canals are clear without significant drainage , no obstruction or vesicles , pinna and tragus non tender Nose with pink nasal mucosa that is slightly hyperemic with some mucoid discharge present, nares patent, non tender without bleeding, on NC O2 Mouth - mucous membrane moist , pink , no lesions , no trismus Neck - no masses , supple , no cervical spinous process tenderness Pharynx - no exudate , no petechia or obvious lesions , no airway obstruction or stridor, some posterior nasal drainage present Hematologic ~ Lymphatic ~ Immunologic: Lymphadenopathy normal , no petechia , Skin color, nails and pulses unremarkable. Heart ~ Chest: Reg rate , nml Rhythm , nl S1/S2 , no MRG Lungs: Breath sounds equal , genrally clear to auscultation bilaterally with some slight end expiratory wheezing, trace basilar rales no rhonchi , no CVA tenderness, speaks in full sentences Gastrointestinal ~ Abd: Soft & non tender , BS + in 4 quads , No HSM or masses , no peritoneal signs GenitoUrinary: Deferred Musculoskeletal ~ Back ~ Extremities: Warm and w/o clubbing , cyanosis , or edema. No point tenderness , good ROM of major joints Neurologic: Cranial nerves grossly intact, good muscle strength , attention good , cooperative , Alert and oriented x4 Psychiatric: Calm , Insight and mood appropriate , Skin: No rashes , good skin turgor , cap refill 2-3 seconds , warm and dry - General General appearance: alert, in no apparent distress Course Vital Signs Temperature 98.2 F 04/10/18 10:02 Pulse Rate 89 04/10/18 10:02 Respiratory Rate 18 04/10/18 10:02 Blood Pressure 141/68 04/10/18 10:02 O2 Sat by Pulse Oximetry 92 04/10/18 10:02 Temperature 97.7 F 04/11/18 04:34 Pulse Rate 74 04/11/18 04:34 Respiratory Rate 18 04/11/18 04:34 Blood Pressure 120/60 04/11/18 04:34 O2 Sat by Pulse Oximetry 92 04/11/18 04:34 Oxygen Delivery Oxygen Delivery Nasal Cannula Medical Decision Making - Lab Data Result diagrams: 04/10/18 10:45 04/10/18 10:45 Lab Results 04/10/18 04/10/18 04/10/18 Range/Units 10:39 10:45 10:45 WBC 11.3 H (4.3-11.1) K/mcL RBC 4.39 (3.82-4.97) M/mcL Hgb 12.8 (11.5-15.4) g/dL Hct 39.8 (35.3-44.9) % MCV 90.7 (83.0-100.0) fL MCH 29.2 (28.0-33.3) pg MCHC 32.2 (31.6-35.5) g/dL RDW 14.0 (11.5-14.5) % Plt Count 267 (140-400) K/mcL MPV 10.7 (9.4-12.4) fL Immature Gran % 0.4 (0-4) % Seg Neutrophils % 76.4 % Lymphocytes % 16.3 % Monocytes % 4.5 % Eosinophils % 1.8 % Basophils % 0.6 % Neutrophils # 8.6 (1.6-8.9) K/mcL Lymphocytes # 1.8 (0.6-4.6) K/mcL Monocytes # 0.5 (0.0-1.3) K/mcL Eosinophils # 0.2 (0.0-0.6) K/mcL Basophils # 0.1 (0.0-0.2) K/mcL ABG pH 7.37 (7.32-7.45) pH Units ABG pCO2 58 H (35-45) mmHg ABG pO2 55 L (85-104) mmHg ABG HCO3 34 H (21-27) mEq/L ABG Total CO2 35 H (20-26) mEq/L ABG O2 Saturation 87 L (95-98) % ABG Base Excess 6 H (-2 to 3) mEq/L Sodium 135 L (136-145) mEq/L Potassium 4.1 (3.5-5.1) mEq/L Chloride 93 L (98-107) mEq/L Carbon Dioxide 37 H (23-29) mEq/L BUN 15 (8-23) mg/dL Creatinine 0.78 (0.60-1.20) mg/dL Est GFR ( Amer) > 60 (> 60) Est GFR (Non-Af Amer) > 60 (> 60) BUN/Creatinine Ratio 19 (6-26) Glucose 261 H (70-105) mg/dL Calculated Osmolality 290 (280-300) Lactic Acid (0.5-2.2) mmol/L Calcium 9.2 (8.6-10.3) mg/dL Troponin I < 0.03 (< 0.04) ng/mL B-Natriuretic Peptide (Less than 100) pg/mL 04/10/18 04/10/18 Range/Units 10:45 10:45 WBC (4.3-11.1) K/mcL RBC (3.82-4.97) M/mcL Hgb (11.5-15.4) g/dL Hct (35.3-44.9) % MCV (83.0-100.0) fL MCH (28.0-33.3) pg MCHC (31.6-35.5) g/dL RDW (11.5-14.5) % Plt Count (140-400) K/mcL MPV (9.4-12.4) fL Immature Gran % (0-4) % Seg Neutrophils % % Lymphocytes % % Monocytes % % Eosinophils % % Basophils % % Neutrophils # (1.6-8.9) K/mcL Lymphocytes # (0.6-4.6) K/mcL Monocytes # (0.0-1.3) K/mcL Eosinophils # (0.0-0.6) K/mcL Basophils # (0.0-0.2) K/mcL ABG pH (7.32-7.45) pH Units ABG pCO2 (35-45) mmHg ABG pO2 (85-104) mmHg ABG HCO3 (21-27) mEq/L ABG Total CO2 (20-26) mEq/L ABG O2 Saturation (95-98) % ABG Base Excess (-2 to 3) mEq/L Sodium (136-145) mEq/L Potassium (3.5-5.1) mEq/L Chloride (98-107) mEq/L Carbon Dioxide (23-29) mEq/L BUN (8-23) mg/dL Creatinine (0.60-1.20) mg/dL Est GFR ( Amer) (> 60) Est GFR (Non-Af Amer) (> 60) BUN/Creatinine Ratio (6-26) Glucose (70-105) mg/dL Calculated Osmolality (280-300) Lactic Acid 1.0 (0.5-2.2) mmol/L Calcium (8.6-10.3) mg/dL Troponin I (< 0.04) ng/mL B-Natriuretic Peptide 25 (Less than 100) pg/mL
[2018-04-10 10:43] LABS: ABG Base Excess 6 mEq/L (-2 to 3); ABG HCO3 34 mEq/L (21-27); ABG Oxygen Saturation 87 % (95-98); ABG PCO2 58 mmHg (35-45); ABG PH 7.37 pH Units (7.32-7.45); ABG PO2 55 mmHg (85-104); ABG TCO2 35 mEq/L (20-26)
[2018-04-10 11:02] LABS: Basophils # 0.1 K/mcL (0.0-0.2); Basophils % 0.6 %; Eosinophils # 0.2 K/mcL (0.0-0.6); Eosinophils % 1.8 %; Hematocrit 39.8 % (35.3-44.9); Hemoglobin 12.8 g/dL (11.5-15.4); Immature Granulocytes % 0.4 % (0-4); Lymphocytes % 16.3 %; Mean Corpuscular HGB Conc 32.2 g/dL (31.6-35.5); Mean Corpuscular Hemoglobin 29.2 pg (28.0-33.3); Mean Corpuscular Volume 90.7 fL (83.0-100.0); Mean Platelet Volume 10.7 fL (9.4-12.4); Monocytes # 0.5 K/mcL (0.0-1.3); Monocytes % 4.5 %; Platelet Count 267 K/mcL (140-400); Red Blood Count 4.39 M/mcL (3.82-4.97); Segmented Neutrophils % 76.4 %
[2018-04-10 11:04] LABS: Lymphocytes # 1.8 K/mcL (0.6-4.6); Neutrophils # 8.6 K/mcL (1.6-8.9)
[2018-04-10 11:10] LABS: BUN/Creatinine Ratio 19 (6-26); Blood Urea Nitrogen 15 mg/dL (8-23); Calcium 9.2 mg/dL (8.6-10.3); Carbon Dioxide 37 mEq/L (23-29); Chloride 93 mEq/L (98-107); Glucose 261 mg/dL (70-105); Osmolality,Calculated 290 (280-300); Potassium 4.1 mEq/L (3.5-5.1); Sodium 135 mEq/L (136-145); eGFR For African Americans > 60 (> 60); eGFR For Non-African Americans > 60 (> 60)
[2018-04-10 11:18] LABS: Troponin I < 0.03 ng/mL (< 0.04)
[2018-04-10] MEDS ORDERED: Levofloxacin 750 MG/150 ML 750 MG/150 ML BAG IVPB ONE (12:18)
[2018-04-10] MEDS ORDERED: *HR* HYDROcodone/Acet 5/325 mg TABLET PO ONE (12:18)
[2018-04-10] MEDS ORDERED: Naloxone 0.4 MG/ML INJ IVP PRN (16:17)
[2018-04-10] MEDS: *HR* OxyCODONE/APAP 7.5/325 TABLET PO SCH ×2 (16:56→21:09)
[2018-04-10] MEDS: Furosemide 40 MG TABLET PO SCH (16:56)
[2018-04-10] MEDS: Gabapentin 300 MG CAPSULE PO SCH ×2 (16:56→21:09)
[2018-04-10] MEDS ORDERED: Dextrose Gel 15 GM/37.5 ML TUBE PO PRN ×4 (16:58→21:44)
[2018-04-10] MEDS ORDERED: D5% in Water 1,000 ML IVC PRN ×2 (16:58→21:44)
[2018-04-10] MEDS ORDERED: *HR* Dextrose 50 % in Water (Syg) 50 ML SYRINGE IVP PRN ×2 (16:58→21:44)
[2018-04-10] MEDS: Insulin LISPRO 300 UNITS/3 ML VIAL SQ SCH ×2 (17:06→22:06)
--- NOTE | 2018-04-10 18:45 | Electrocardiograph Report ---
[place] [id number] Test Date: 2018-04-10 Pat Name: India Villa Department: 2000 Room: 115 Gender: F Occupational Therapy Aide: : 1960 Requested By: Amadeo Caputo Order Number: [id number] Reading MD: Jett Ledesma Measurements Intervals [place] Rate: 84 P: 37 [place]: 174 QRS: 43 QRSD: 102 T: 56 QT: 358 QTc: 400 Interpretive Statements SINUS RHYTHM BASELINE ARTIFACT Electronically Signed On 04-10-2018 18:43:28 EDT by Jett Ledesma
[2018-04-10] MEDS: Melatonin 3 MG TABLET PO SCH (21:09)
[2018-04-10] MEDS: Ipratropium Neb 0.5 MG NEBULIZER IH SCH (21:11)
[2018-04-10] MEDS: Budesonide/Formoterol 80/4.5 MDI IH SCH (21:31)
[2018-04-11] MEDS: Ipratropium Neb 0.5 MG NEBULIZER IH SCH ×4 (03:39→20:31)
[2018-04-11 07:17] LABS: Basophils % 0.1 %; Hematocrit 37.4 % (35.3-44.9); Hemoglobin 12.2 g/dL (11.5-15.4); Immature Granulocytes % 0.6 % (0-4); Lymphocytes # 1.1 K/mcL (0.6-4.6); Lymphocytes % 10.2 %; Mean Corpuscular HGB Conc 32.6 g/dL (31.6-35.5); Mean Corpuscular Hemoglobin 29.1 pg (28.0-33.3); Mean Corpuscular Volume 89.3 fL (83.0-100.0); Mean Platelet Volume 10.6 fL (9.4-12.4); Monocytes # 0.7 K/mcL (0.0-1.3); Monocytes % 6.2 %; Neutrophils # 8.8 K/mcL (1.6-8.9); Platelet Count 280 K/mcL (140-400); Red Blood Count 4.19 M/mcL (3.82-4.97); Red Cell Distribution Width 13.7 % (11.5-14.5); Segmented Neutrophils % 82.9 %
[2018-04-11 07:35] LABS: BUN/Creatinine Ratio 21 (6-26); Blood Urea Nitrogen 15 mg/dL (8-23); Calcium 9.3 mg/dL (8.6-10.3); Carbon Dioxide 37 mEq/L (23-29); Chloride 95 mEq/L (98-107); Glucose 327 mg/dL (70-105); Osmolality,Calculated 296 (280-300); Potassium 4.1 mEq/L (3.5-5.1); Sodium 136 mEq/L (136-145); eGFR For African Americans > 60 (> 60); eGFR For Non-African Americans > 60 (> 60)
[2018-04-11] MEDS: *HR* OxyCODONE/APAP 7.5/325 TABLET PO SCH ×4 (08:07→20:30)
[2018-04-11] MEDS: Multivit/Ca/Min/Fe/FA 1 TAB TABLET PO SCH (08:07)
[2018-04-11] MEDS: FLUoxetine 20 MG CAPSULE PO SCH (08:07)
[2018-04-11] MEDS: Insulin LISPRO 300 UNITS/3 ML VIAL SQ SCH ×4 (08:08→20:30)
[2018-04-11] MEDS: *HR* Heparin 5,000 UNIT/ML VIAL SQ SCH ×2 (08:08→18:54)
[2018-04-11] MEDS: Gabapentin 300 MG CAPSULE PO SCH ×3 (08:08→20:29)
[2018-04-11] MEDS: Folic Acid 1 MG TABLET PO SCH (08:08)
[2018-04-11] MEDS: Furosemide 40 MG TABLET PO SCH ×2 (08:08→16:52)
[2018-04-11] MEDS: Budesonide/Formoterol 80/4.5 MDI IH SCH ×2 (09:54→20:31)
--- NOTE | 2018-04-11 13:50 | Internal Med History&Physical ---
Date of Encounter: 04/11/18 Time of Encounter: 13:47 Assessment and Plan (1) COPD exacerbation Current visit: Yes Status: Acute Continue oxygen during the day and BiPAP at night. Will start doxycycline and prednisone. Will monitor for improvement. (2) Morbid obesity with BMI of 60.0-69.9, adult Current visit: Yes Status: Chronic Provide education on weight management. (3) Diabetes mellitus Current visit: Yes Status: Chronic Controlled with insulin per sliding scale. Monitor fingerstick blood sugar. Will adjust medications as necessary. 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 Villa is a 58 year old female on unit for observation after presenting to the emergency room yesterday for increased shortness of breath. Patient states shortness of breath started 3 days ago. History of COPD, CHF, diabetes, hyperlipidemia, hypothyroidism, arthritis and venous stasis. States she had low -grade fever couple days ago. Denies fever or chills at this time. States breathing has been starting to improve. On chronic oxygen at home at 2 L. Currently on 4 L per nasal cannula maintaining Sats around 93%. States did not sleep well last night. States BiPAP did not fit well. White blood cell count was slightly elevated upon arrival emergency room. Normal today. Discussed starting on doxycycline and prednisone for COPD exacerbation. Patient hoping to discharge to home soon. Past Med Surg Social Fam HX - Past Medical History Medical history: arthritis, asthma, CHF, COPD, diabetes, GERD, hyperlipidemia, hypertension, osteoporosis, venous stasis, other Additional medical history: DVT x2 LLE Psychiatric history: anxiety, depression - Past Surgical History Surgical History: other Additional surgical history: BILATERAL HEEL SX, TUBAL LIGATION - Social History Smoking Status: Former smoker Smokeless Tobacco Status: No Alcohol use: none Drug use: none - Family History Brother Living Status: Father Living Status: Mother Living Status: Hx Family Respiratory Disorders: Yes Internal Medicine - H&P: Meds Albuterol Neb [Proventil Neb] 2.5 mg IH QID 04/10/18 [History] Albuterol Sulfate [Albuterol Inhaler] 2 puff IH Q4HR PRN 04/10/18 [History] Cyclobenzaprine [Flexeril] 10 mg PO TID 04/10/18 [History] Esomeprazole Magnesium [Nexium] 20 mg PO DAILY 04/10/18 [History] FLUoxetine HCl [Fluoxetine HCl] 40 mg PO DAILY 04/10/18 [History] FLUoxetine HCl [Prozac] 40 mg PO DAILY 04/10/18 [History] Fluticasone/Salmeterol [Advair 100-50 Diskus] 1 each IH BID 04/10/18 [History] Folic Acid 1 mg PO DAILY 04/10/18 [History] Furosemide [Lasix] 80 mg PO BID 04/10/18 [History] Gabapentin [Neurontin] 300 mg PO TID 04/10/18 [History] Insulin Human Regular [HumuLIN R] 0 unit SQ TID 04/10/18 [History] Ipratropium Neb [Atrovent Neb] 0.5 mg IH Q6HR 04/10/18 [History] Levothyroxine Sodium [Tirosint] 75 mcg PO DAILY 04/10/18 [History] Losartan Potassium [Cozaar] 50 mg PO DAILY 04/10/18 [History] Melatonin 3 mg PO HS 04/10/18 [History] Metoprolol [Lopressor] 50 mg PO BID 04/10/18 [History] Montelukast [Singulair] 10 mg PO DAILY 04/10/18 [History] Multivitamin [One Daily Essential] 1 each PO DAILY 04/10/18 [History] Oxycodone HCl/Acetaminophen [Percocet 7.5-325 mg Tablet] 1 each PO QID 04/10/18 [History] Oxygen 3 l .ROUTE AD 04/10/18 [History] Pravastatin Sodium [Pravachol] 80 mg PO DAILY 04/10/18 [History] Promethazine [Phenergan] 25 mg PO BID PRN 04/10/18 [History] 3 Allergy/AdvReac Type Severity Reaction Status Date / Time cetirizine [From [facility]] Allergy Swelling Verified 04/10/18 12:38 of Lip/Tongue/Throat codeine AdvReac Nausea Verified 04/10/18 12:38 lisinopril AdvReac Cough Verified 04/10/18 12:38 All Systems PM: A 10-system review of systems was performed and is negative for pertinent findings except as documented above in the HPI. - Constitutional Constitutional: no chills, no fever(s), no night sweats - EENT Eyes: no change in vision, no discharge, no pain, no photophobia Ears: no ear discharge, no ear pain, no tinnitus Nose, mouth and throat: no dysphagia, no nasal discharge, no neck pain, no sore throat - Cardiovascular Cardiovascular ROS IM: no chest pain, no diaphoresis, no dyspnea, no lightheadedness, no palpitations, no syncope - Respiratory Respiratory: wheezing, no cough, no dyspnea, no excessive phlegm production Additional comments: sob - Gastrointestinal Gastrointestinal: no abdominal pain, no diarrhea, no hematemesis, no hematochezia, no melena, no nausea, no vomiting - Genitourinary Genitourinary: no change in urinary stream, no dysuria, no flank pain, no hematuria - Musculoskeletal Musculoskeletal ROS IM: no numbness, no tingling - Integumentary Integumentary IM: no rash, no unusual bruising - Neurological Neurological ROS: no confusion, no convulsions, no focal weakness, no numbness, no tingling, no tremor(s) - Hematologic/Lymphatic Hematologic/Lymphatic: no easy bruising - Constitutional Vitals: Temp Pulse Resp BP Pulse Ox 98.6 F 67 18 135/63 93 04/11/18 11:12 04/11/18 11:12 04/11/18 11:12 04/11/18 11:12 04/11/18 11:12 General appearance: Present: cooperative, A&O X 3, morbidly obese, pleasant, no acute distress, answers questions appropriately - Head Head exam: Present: atraumatic, normocephalic - Eye Eye exam: Present: PERRL, conjuntiva pink, sclera anicteric Pupils: Present: PERRL - Neck Neck exam general surgery: Present: supple, trachea midline. Absent: lymphadenopathy - Respiratory Respiratory exam: Present: decreased breath sounds, CTAB, wheezes. Absent: accessory muscle use, rales, rhonchi Additional comments: Diminish breath sounds and bilateral bases. Slight expiratory wheeze in right upper lobe - Cardiovascular Cardiovascular exam: Present: RRR, +S1, +S2. Absent: diastolic murmur, gallop, rubs, systolic murmur - GI/Abdominal GI/Abdominal exam: Present: normal bowel sounds, soft, no peritoneal signs. Absent: distended, tenderness - Extremities Exam Extremities exam: Present: warm, radial pulses palpable and symmetrical. Absent : calf tenderness, cyanotic, pedal edema Additional comments: Non-bilateral lower extremity edema. Lower legs discolored with slight redness. History of venous stasis. - Neurological Exam Neurological exam: Present: CN II-XII intact, oriented X3, no focal deficits. Absent: pronater drift, facial droop, speech deficit - Skin Skin exam: Present: dry, intact Internal Med - H&P Results - Labs CBC & Chem 7: 04/11/18 07:02 04/11/18 07:02 Labs: Short CBC 04/11/18 Range/Units 07:02 WBC 10.7 (4.3-11.1) K/mcL Hgb 12.2 (11.5-15.4) g/dL Hct 37.4 (35.3-44.9) % Plt Count 280 (140-400) K/mcL Neutrophils # 8.8 (1.6-8.9) K/mcL BMP 04/11/18 07:02 Sodium 136 Potassium 4.1 Chloride 95 L Carbon Dioxide 37 H BUN 15 Creatinine 0.73 Glucose 327 H Calcium 9.3 Cardiac Enzymes 04/10/18 04/10/18 04/11/18 Range/Units 14:32 21:50 07:02 Troponin I < 0.03 < 0.03 < 0.03 (< 0.04) ng/mL - Impressions ITS Impressions Chest X-Ray 04/11/18 06:00 IMPRESSION: 1. Cardiomegaly with mild vascular congestion. D/ / Sohail Diaz MD / Sohail Diaz MD Interpreting Provider: Sohail Diaz MD
[2018-04-11] MEDS: Doxycycline 100 MG CAPSULE PO SCH ×2 (14:01→20:29)
[2018-04-11] MEDS: predniSONE 20 MG TABLET PO SCH (16:52)
[2018-04-11] MEDS: Melatonin 3 MG TABLET PO SCH (20:30)
[2018-04-11] MEDS: Nystatin POWDER 30 GM BOTTLE TP SCH (20:31)
[2018-04-12] MEDS: Ipratropium Neb 0.5 MG NEBULIZER IH SCH ×2 (04:08→08:12)
[2018-04-12] MEDS: *HR* Heparin 5,000 UNIT/ML VIAL SQ SCH (04:08)
[2018-04-12] MEDS: Insulin LISPRO 300 UNITS/3 ML VIAL SQ SCH ×2 (08:11→12:08)
[2018-04-12] MEDS: FLUoxetine 20 MG CAPSULE PO SCH (08:12)
[2018-04-12] MEDS: *HR* OxyCODONE/APAP 7.5/325 TABLET PO SCH ×2 (08:12→12:07)
[2018-04-12] MEDS: Folic Acid 1 MG TABLET PO SCH (08:12)
[2018-04-12] MEDS: predniSONE 20 MG TABLET PO SCH (08:12)
[2018-04-12] MEDS: Doxycycline 100 MG CAPSULE PO SCH (08:12)
[2018-04-12] MEDS: Furosemide 40 MG TABLET PO SCH (08:12)
[2018-04-12] MEDS: Budesonide/Formoterol 80/4.5 MDI IH SCH (08:13)
[2018-04-12] MEDS: Multivit/Ca/Min/Fe/FA 1 TAB TABLET PO SCH (08:13)
[2018-04-12] MEDS: Gabapentin 300 MG CAPSULE PO SCH (08:13)
[2018-04-12] MEDS: Nystatin POWDER 30 GM BOTTLE TP SCH (08:16)
--- NOTE | 2018-04-12 11:51 | Discharge Summary ---
Date of Encounter: 04/12/18 Time of Encounter: 11:41 - Discharge Diagnosis (1) COPD exacerbation Priority: Primary Status: Acute Comments: Improving. Continue doxycycline and prednisone. Continue inhaled meds and oxygen. follow up with PCP. (2) Morbid obesity with BMI of 60.0-69.9, adult Priority: Secondary Status: Chronic Comments: Educating on weight loss (3) Diabetes mellitus Priority: Secondary Status: Chronic Comments: Controlled with current medication. Follow up with PCP. Continue to monitor blood sugars. 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 Villa is a 58 year old female discharging to home after COPD exacerbation. patient states she is ready to go home and feels like she is at baseline. slight SOB with exertion, but states she has been this way for quite some time now. denies fever, chills, NVD or chest pain. maintaining O2 sats 93% with 2 liters per NC. started on doxycycline and prednisone. instructed to follow up with PCP within 1 week. Discharge discussed with: patient, family, nurse - Time Spent with Patient Total time spent providing and/or coordinating discharge services: Less than 30 minutes - Discharge Medications Home Medications: Albuterol Neb [Proventil Neb] 2.5 mg IH QID 04/10/18 [History] Albuterol Sulfate [Albuterol Inhaler] 2 puff IH Q4HR PRN 04/10/18 [History] Cyclobenzaprine [Flexeril] 10 mg PO TID 04/10/18 [History] Esomeprazole Magnesium [Nexium] 20 mg PO DAILY 04/10/18 [History] FLUoxetine HCl [Fluoxetine HCl] 40 mg PO DAILY 04/10/18 [History] FLUoxetine HCl [Prozac] 40 mg PO DAILY 04/10/18 [History] Fluticasone/Salmeterol [Advair 100-50 Diskus] 1 each IH BID 04/10/18 [History] Folic Acid 1 mg PO DAILY 04/10/18 [History] Furosemide [Lasix] 80 mg PO BID 04/10/18 [History] Gabapentin [Neurontin] 300 mg PO TID 04/10/18 [History] Insulin Human Regular [HumuLIN R] 0 unit SQ TID 04/10/18 [History] Ipratropium Neb [Atrovent Neb] 0.5 mg IH Q6HR 04/10/18 [History] Levothyroxine Sodium [Tirosint] 75 mcg PO DAILY 04/10/18 [History] Losartan Potassium [Cozaar] 50 mg PO DAILY 04/10/18 [History] Melatonin 3 mg PO HS 04/10/18 [History] Metoprolol [Lopressor] 50 mg PO BID 04/10/18 [History] Montelukast [Singulair] 10 mg PO DAILY 04/10/18 [History] Multivitamin [One Daily Essential] 1 each PO DAILY 04/10/18 [History] Oxycodone HCl/Acetaminophen [Percocet 7.5-325 mg Tablet] 1 each PO QID 04/10/18 [History] Oxygen 3 l .ROUTE AD 04/10/18 [History] Pravastatin Sodium [Pravachol] 80 mg PO DAILY 04/10/18 [History] Promethazine [Phenergan] 25 mg PO BID PRN 04/10/18 [History] Doxycycline 100 mg PO BID 6 Days #12 capsule 04/12/18 [Rx] Insulin LISPRO [HumaLOG] 0 units SQ HS vial 04/12/18 [Rx] Nystatin POWDER [Nystop] 1 appl TP BID #1 bottle 04/12/18 [Rx] predniSONE [PredniSONE] 40 mg PO BIDWM 4 Days #8 tablet 04/12/18 [Rx] Allergies/Adverse Reactions: 3 Allergy/AdvReac Type Severity Reaction Status Date / Time cetirizine [From [facility]] Allergy Swelling Verified 04/10/18 12:38 of Lip/Tongue/Throat codeine AdvReac Nausea Verified 04/10/18 12:38 lisinopril AdvReac Cough Verified 04/10/18 12:38 Date of admission: 04/10/18 14:31 Primary care physician: Kadie Hurtado Consults: 04/10/18 15:33 Consult to Crime Scene Investigator [CONS] Routine Reason for SW Consult: Would like additional info regarding advanced directives Discharging clinician: Valerio Shields Anticipated date of discharge: 04/12/18 - Constitutional Vitals: Temp Pulse Resp BP Pulse Ox 97.6 F 69 18 146/52 94 04/12/18 08:07 04/12/18 08:07 04/12/18 08:07 04/12/18 08:07 04/12/18 08:07 General appearance: Present: cooperative, A&O X 3, morbidly obese, pleasant, no acute distress, answers questions appropriately - Head Head exam: Present: atraumatic, normocephalic - Eye Eye exam: Present: PERRL, conjuntiva pink, sclera anicteric Pupils: Present: PERRL - Neck Neck exam general surgery: Present: supple, trachea midline. Absent: lymphadenopathy - Respiratory Respiratory exam: Present: CTAB, wheezes. Absent: accessory muscle use, rales, rhonchi Additional comments: slight inspiratory wheeze RUL. - Cardiovascular Cardiovascular exam: Present: RRR, +S1, +S2. Absent: diastolic murmur, gallop, rubs, systolic murmur - GI/Abdominal GI/Abdominal exam: Present: normal bowel sounds, soft, no peritoneal signs. Absent: distended, tenderness - Extremities Exam Extremities exam: Present: warm, radial pulses palpable and symmetrical. Absent : calf tenderness, cyanotic, pedal edema Additional comments: nonpitting edema BLE. - Neurological Exam Neurological exam: Present: CN II-XII intact, oriented X3, no focal deficits. Absent: pronater drift, facial droop, speech deficit - Skin Skin exam: Present: dry, intact - Patient Status Disposition: Home, Self-Care Condition: Good Functional capacity at discharge: independent ambulation Overall status at discharge: patient is progressing back to baseline - Discharge Instructions Follow Up With: Kadie Hurtado MD [Primary Care Provider] - - Diet and Activity Activity: increase activity as tolerated, wear oxygen at all times Diet: advance to your usual diet - VTE Documentation of Mechanical Device: Graduated compression elastic hosiery
[2018-04-12 13:18] VITALS: BP 165/82
[2018-04-13] MEDS ORDERED: predniSONE 20 MG TABLET PO SCH (09:00)
--- NOTE | 2018-04-15 20:06 | Electrocardiograph Report ---
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
== END 2018-04-12 14:52 | disposition home or self-care (01) ==
LOC: INPGRE 10:02 → EMEROOGRE 10:02 → INPGRE 14:51

== ENCOUNTER 2019-01-01 17:06 | Inpatient (IN) ==
[2019-01-01] MEDS ORDERED: methylPREDNISolone 125 MG/2 ML VIAL IVP ONE (17:14)
[2019-01-01] MEDS ORDERED: Ipratropium/Albuterol Neb 3 ML IH ONE (17:14)
[2019-01-01] MEDS ORDERED: Levalbuterol Neb 1.25 MG/3 ML IH ONE (17:15)
--- NOTE | 2019-01-01 17:19 | Emergency Department Note ---
Disposition Clinical Impression: COPD exacerbation Disposition: Admitted As Inpatient Condition: Fair Referrals: Kadie Hurtado MD [Primary Care Provider] - SOB HPI - General Stated Complaint: short of breath Time Seen by Provider: 01/01/19 17:09 Source: patient Mode of arrival: EMS Nursing Notes Reviewed: Yes Vital Signs Reviewed: Yes - History of Present Illness 58-year-old female percents for evaluation shortness of breath. Patient has known history of COPD which requires her to use oxygen, DuoNeb nebulizers, and BiPAP at night. Patient states over the last 5-6 days she has been having increasing shortness of breath with productive sputum. She denies any localized chest pain. She states no nausea vomiting. Today she cannot get her O2 saturations above 90% after using nebulizers and oxygen that prompted her to come to the emergency room. Patient does have a prior history of DVT of her left lower extremity. - Related Data Home Medications Medication Instructions Recorded Confirmed Albuterol Neb [Proventil Neb] 2.5 mg IH QID 04/10/18 04/10/18 Albuterol Sulfate [Albuterol 2 puff IH Q4HR PRN 04/10/18 04/10/18 Inhaler] Cyclobenzaprine [Flexeril] 10 mg PO TID 04/10/18 04/10/18 Esomeprazole Magnesium [Nexium] 20 mg PO DAILY 04/10/18 04/10/18 FLUoxetine HCl [Fluoxetine HCl] 40 mg PO DAILY 04/10/18 04/10/18 FLUoxetine HCl [Prozac] 40 mg PO DAILY 04/10/18 04/10/18 Fluticasone/Salmeterol [Advair 1 each IH BID 04/10/18 04/10/18 100-50 Diskus] Folic Acid 1 mg PO DAILY 04/10/18 04/10/18 Furosemide [Lasix] 80 mg PO BID 04/10/18 04/10/18 Gabapentin [Neurontin] 300 mg PO TID 04/10/18 04/10/18 Insulin Human Regular [HumuLIN R] 0 unit SQ TID 04/10/18 04/10/18 Ipratropium Neb [Atrovent Neb] 0.5 mg IH Q6HR 04/10/18 04/10/18 Levothyroxine Sodium [Tirosint] 75 mcg PO DAILY 04/10/18 04/10/18 Losartan Potassium [Cozaar] 50 mg PO DAILY 04/10/18 04/10/18 Melatonin 3 mg PO HS 04/10/18 04/10/18 Metoprolol [Lopressor] 50 mg PO BID 04/10/18 04/10/18 Montelukast [Singulair] 10 mg PO DAILY 04/10/18 04/10/18 Multivitamin [One Daily Essential] 1 each PO DAILY 04/10/18 04/10/18 Oxycodone HCl/Acetaminophen 1 each PO QID 04/10/18 04/10/18 [Percocet 7.5-325 mg Tablet] Oxygen 3 l .ROUTE AD 04/10/18 04/10/18 Pravastatin Sodium [Pravachol] 80 mg PO DAILY 04/10/18 04/10/18 Promethazine [Phenergan] 25 mg PO BID PRN 04/10/18 04/10/18 Previous Rx's Medication Instructions Recorded Doxycycline 100 mg PO BID 6 Days #12 capsule 04/12/18 Insulin LISPRO [HumaLOG] 0 units SQ HS vial 04/12/18 Nystatin POWDER [Nystop] 1 appl TP BID #1 bottle 04/12/18 predniSONE [PredniSONE] 40 mg PO BIDWM 4 Days #8 tablet 04/12/18 Allergies Allergy/AdvReac Type Severity Reaction Status Date / Time cetirizine [From [facility]] Allergy Swelling Verified 04/10/18 12:38 of Lip/Tongue/Throat codeine AdvReac Nausea Verified 04/10/18 12:38 lisinopril AdvReac Cough Verified 04/10/18 12:38 Review of Systems: Constitutional: [Negative for fever and chills.] HENT: [Negative for congestion.] Eyes: [Negative for discharge.] Respiratory: See history of present illness Cardiovascular: [Negative for chest pain.] Gastrointestinal: [Negative for nausea, vomiting, abdominal pain and diarrhea.] Endocrine: [Negative for excessive thirst,urination] Genitourinary: [Negative for dysuria and frequency.] Musculoskeletal: [Negative for myalgias and arthralgias.] Skin: [Negative for rash.] Neurological: [Negative for dizziness, localized weakness and headaches.] Psychiatric/Behavioral: [Negative for nervous/anxious.] All other systems reviewed and are negative. Past Medical History - Past Medical History Attestation: Yes The following information was validated with the patient. 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 HENT: Head: Normocephalic and atraumatic. Right Ear: External ear normal. Left Ear: External ear normal. Nose: Nose normal. Mouth/Throat: Oropharynx is clear and mucous membranes show [good hydration.] Eyes: Conjunctivae and EOM are normal. Pupils are equal, round, and reactive to light. Right eye exhibits [no] discharge. Left eye exhibits [no] discharge. Neck: Trachea is midline, normal range of motion and [phonation normal]. Neck supple. Cardiovascular: [Regular rhythm], S1 normal, S2 normal, normal heart sounds and intact distal pulses. Exam reveals no gallop and no friction rub. No murmur heard. [Capillary refill is brisk.] [Peripheral pulses are 2+] Pulmonary/Chest: Effort increased No stridor. Mild tachypnea. Mild respiratory distress. There are decreased breath sounds. There are diffuse wheezes heard throughout all lung ford with no rhonchi or rales Abdominal: Soft. [Bowel sounds are normal]. There exhibits [no] distension and [no] mass. There is no hepatosplenomegaly. There is [no tenderness], [no] CVA tenderness. There is [no rigidity, no rebound, no guarding]. Musculoskeletal: Normal range of motion of uninvolved extremities. There exhibits [no edema]. [ ] Neurological: Patient is alert. Patient displays no atrophy and no tremor. Moves all 4 extremities equally without gross deficit. No cranial nerve deficit and exhibits normal muscle tone. Coordination normal grossly. Skin: Skin is warm and dry. No erythema. No rash noted. Psychiatric: Patient has a [normal mood and affect.] Course Course Narrative: Patient received multiple breathing treatments Solu-Medrol IV and still had significant wheezes and would deoxygenate with any type of exertion. Patient was discussed with Dr. Shields who agrees with admission Vital Signs Temperature 97.9 F 01/01/19 17:11 Pulse Rate 78 01/01/19 17:11 Respiratory Rate 20 01/01/19 17:11 Blood Pressure 185/92 01/01/19 17:11 O2 Sat by Pulse Oximetry 74 01/01/19 17:11 Temperature 97.9 F 01/01/19 17:11 Pulse Rate 71 01/01/19 18:30 Respiratory Rate 20 01/01/19 17:11 Blood Pressure 151/69 01/01/19 18:30 O2 Sat by Pulse Oximetry 93 01/01/19 18:30 Oxygen Delivery Oxygen Delivery Nasal Cannula Shortness of Breath/Dyspnea - Differential Diagnosis Likely: acute exacerbation of chronic obstructive airways disease, congestive heart failure, pneumonia. Unlikely: asthma with exacerbation, pulmonary embo lism, pneumothorax, arrhythmia - Medical Records Medical records reviewed: Yes I reviewed the patient's medical records. - Lab Data Lab results reviewed: Yes I reviewed the patient's lab results. Result diagrams: 01/01/19 17:24 01/01/19 17:24 Lab Results 01/01/19 01/01/19 01/01/19 Range/Units 17:24 17:24 17:24 WBC 9.0 (4.3-11.1) K/mcL RBC 4.63 (3.82-4.97) M/mcL Hgb 13.5 (11.5-15.4) g/dL Hct 43.3 (35.3-44.9) % MCV 93.5 (83.0-100.0) fL MCH 29.2 (28.0-33.3) pg MCHC 31.2 L (31.6-35.5) g/dL RDW 13.7 (11.5-14.5) % Plt Count 226 (140-400) K/mcL MPV 10.0 (9.4-12.4) fL Immature Gran % 0.4 (0-4) % Seg Neutrophils % 65.2 % Lymphocytes % 24.5 % Monocytes % 7.4 % Eosinophils % 1.9 % Basophils % 0.6 % Neutrophils # 5.9 (1.6-8.9) K/mcL Lymphocytes # 2.2 (0.6-4.6) K/mcL Monocytes # 0.7 (0.0-1.3) K/mcL Eosinophils # 0.2 (0.0-0.6) K/mcL Basophils # 0.1 (0.0-0.2) K/mcL PT 12.0 (9.4-12.1) Seconds INR 1.1 D-Dimer 510 H (0-500) ng/mLFEU ABG pH (7.32-7.45) pH Units ABG pCO2 (35-45) mmHg ABG pO2 (85-104) mmHg ABG HCO3 (21-27) mEq/L ABG Total CO2 (20-26) mEq/L ABG O2 Saturation (95-98) % ABG Base Excess (-2 to 3) mEq/L Sodium 139 (136-145) mEq/L Potassium 4.3 (3.5-5.1) mEq/L Chloride 96 L (98-107) mEq/L Carbon Dioxide 41 H* (23-29) mEq/L BUN 11 (8-23) mg/dL Creatinine 0.63 (0.60-1.20) mg/dL Est GFR ( Amer) > 60 (> 60) Est GFR (Non-Af Amer) > 60 (> 60) BUN/Creatinine Ratio 17 (6-26) Glucose 228 H (70-105) mg/dL Calculated Osmolality 295 (280-300) Lactic Acid (0.5-2.2) mmol/L Calcium 9.2 (8.6-10.3) mg/dL Total Bilirubin 0.3 (0.3-1.0) mg/dL Direct Bilirubin 0.0 (0.0-0.2) mg/dL Indirect Bilirubin 0.3 (0.0-1.2) mg/dL AST 13 (13-39) Units/L ALT 14 (7-52) Units/L Alkaline Phosphatase 130 H (34-104) Units/L Troponin I < 0.03 (< 0.04) ng/mL B-Natriuretic Peptide (Less than 100) pg/mL Serum Total Protein 7.7 (6.4-8.9) g/dL Albumin 4.0 (3.5-5.7) g/dL Globulin 3.7 H (2.4-3.5) g/dL Albumin/Globulin Ratio 1.1 (1.1-2.2) Person Notif of Crit 01/01/19 01/01/19 01/01/19 Range/Units 17:24 17:24 17:58 WBC (4.3-11.1) K/mcL RBC (3.82-4.97) M/mcL Hgb (11.5-15.4) g/dL Hct (35.3-44.9) % MCV (83.0-100.0) fL MCH (28.0-33.3) pg MCHC (31.6-35.5) g/dL RDW (11.5-14.5) % Plt Count (140-400) K/mcL MPV (9.4-12.4) fL Immature Gran % (0-4) % Seg Neutrophils % % Lymphocytes % % Monocytes % % Eosinophils % % Basophils % % Neutrophils # (1.6-8.9) K/mcL Lymphocytes # (0.6-4.6) K/mcL Monocytes # (0.0-1.3) K/mcL Eosinophils # (0.0-0.6) K/mcL Basophils # (0.0-0.2) K/mcL PT (9.4-12.1) Seconds INR D-Dimer (0-500) ng/mLFEU ABG pH 7.34 (7.32-7.45) pH Units ABG pCO2 75 H* (35-45) mmHg ABG pO2 138 H (85-104) mmHg ABG HCO3 40 H (21-27) mEq/L ABG Total CO2 43 H (20-26) mEq/L ABG O2 Saturation 99 H (95-98) % ABG Base Excess 11 H (-2 to 3) mEq/L Sodium (136-145) mEq/L Potassium (3.5-5.1) mEq/L Chloride (98-107) mEq/L Carbon Dioxide (23-29) mEq/L BUN (8-23) mg/dL Creatinine (0.60-1.20) mg/dL Est GFR ( Amer) (> 60) Est GFR (Non-Af Amer) (> 60) BUN/Creatinine Ratio (6-26) Glucose (70-105) mg/dL Calculated Osmolality (280-300) Lactic Acid 1.1 (0.5-2.2) mmol/L Calcium (8.6-10.3) mg/dL Total Bilirubin (0.3-1.0) mg/dL Direct Bilirubin (0.0-0.2) mg/dL Indirect Bilirubin (0.0-1.2) mg/dL AST (13-39) Units/L ALT (7-52) Units/L Alkaline Phosphatase (34-104) Units/L Troponin I (< 0.04) ng/mL B-Natriuretic Peptide 37 (Less than 100) pg/mL Serum Total Protein (6.4-8.9) g/dL Albumin (3.5-5.7) g/dL Globulin (2.4-3.5) g/dL Albumin/Globulin Ratio (1.1-2.2) Person Notif of Keith Pettit - Radiology Data Radiology results reviewed: Yes I reviewed the patient's radiology results. XR/XR chest 1V portable IMPRESSION: Mildly prominent pulmonary vasculature may represent pulmonary vascular congestion. - EKG Data EKG attestation: Yes I reviewed and interpreted this EKG. EKG shows normal: Reports: sinus rhythm, axis, intervals, QRS complexes, ST-T waves (Some baseline artifact but no obvious acute ST segment elevation) Rate: Reports: normal Interpretation: Reports: no acute changes
[2019-01-01 17:36] LABS: Basophils # 0.1 K/mcL (0.0-0.2); Basophils % 0.6 %; Eosinophils # 0.2 K/mcL (0.0-0.6); Eosinophils % 1.9 %; Hematocrit 43.3 % (35.3-44.9); Hemoglobin 13.5 g/dL (11.5-15.4); Immature Granulocytes % 0.4 % (0-4); Lymphocytes # 2.2 K/mcL (0.6-4.6); Lymphocytes % 24.5 %; Mean Corpuscular HGB Conc 31.2 g/dL (31.6-35.5); Mean Corpuscular Hemoglobin 29.2 pg (28.0-33.3); Mean Corpuscular Volume 93.5 fL (83.0-100.0); Monocytes # 0.7 K/mcL (0.0-1.3); Monocytes % 7.4 %; Neutrophils # 5.9 K/mcL (1.6-8.9); Platelet Count 226 K/mcL (140-400); Red Blood Count 4.63 M/mcL (3.82-4.97); Red Cell Distribution Width 13.7 % (11.5-14.5); Segmented Neutrophils % 65.2 %
[2019-01-01 17:39] LABS: INR 1.1
[2019-01-01 17:51] LABS: Troponin I < 0.03 ng/mL (< 0.04)
[2019-01-01 18:02] LABS: Alanine Aminotransferase 14 Units/L (7-52); Albumin/Globulin Ratio 1.1 (1.1-2.2); Alkaline Phosphatase 130 Units/L (34-104); Aspartate Amino Transferase 13 Units/L (13-39); BUN/Creatinine Ratio 17 (6-26); Bilirubin,Indirect 0.3 mg/dL (0.0-1.2); Bilirubin,Total 0.3 mg/dL (0.3-1.0); Blood Urea Nitrogen 11 mg/dL (8-23); Calcium 9.2 mg/dL (8.6-10.3); Carbon Dioxide 41 mEq/L (23-29); Chloride 96 mEq/L (98-107); Globulin 3.7 g/dL (2.4-3.5); Glucose 228 mg/dL (70-105); Osmolality,Calculated 295 (280-300); Potassium 4.3 mEq/L (3.5-5.1); Sodium 139 mEq/L (136-145); Total Protein 7.7 g/dL (6.4-8.9); eGFR For Non-African Americans > 60 (> 60)
[2019-01-01 18:05] LABS: ABG Base Excess 11 mEq/L (-2 to 3); ABG HCO3 40 mEq/L (21-27); ABG Oxygen Saturation 99 % (95-98); ABG PCO2 75 mmHg (35-45); ABG PH 7.34 pH Units (7.32-7.45); ABG PO2 138 mmHg (85-104); ABG TCO2 43 mEq/L (20-26)
[2019-01-01] MEDS ORDERED: Ipratropium Neb 0.5 MG NEBULIZER IH ONE (18:20)
[2019-01-01] MEDS ORDERED: Acetaminophen 325 MG TABLET PO PRN (18:56)
[2019-01-01] MEDS ORDERED: Naloxone 0.4 MG/ML INJ IVP PRN (18:56)
[2019-01-01] MEDS ORDERED: Ondansetron 4 MG/2 ML VIAL IVP PRN (18:56)
[2019-01-01] MEDS: Gabapentin 300 MG CAPSULE PO SCH (20:50)
[2019-01-01] MEDS: Furosemide 40 MG TABLET PO SCH (20:51)
[2019-01-01] MEDS: Melatonin 3 MG TABLET PO SCH (20:51)
[2019-01-01] MEDS ORDERED: *HR* OxyCODONE/APAP 7.5/325 TABLET PO SCH (21:00)
[2019-01-01] MEDS: Albuterol 2.5 MG/3 ML NEBULIZER IH SCH (21:13)
[2019-01-01] MEDS: Ipratropium/Albuterol Neb 3 ML IH SCH (22:02)
[2019-01-01] MEDS: Budesonide/Formoterol 160/4.5 1 PUFF INH IH SCH (22:05)
[2019-01-02] MEDS: Albuterol 2.5 MG/3 ML NEBULIZER IH SCH ×6 (01:57→21:11)
[2019-01-02] MEDS: *HR* OxyCODONE/APAP 7.5/325 TABLET PO SCH ×4 (02:49→21:13)
[2019-01-02] MEDS: Ipratropium/Albuterol Neb 3 ML IH SCH ×4 (02:51→21:30)
[2019-01-02] MEDS: *HR* Enoxaparin 40 MG/0.4 ML SYRINGE SQ SCH (07:05)
[2019-01-02] MEDS ORDERED: *HR* Dextrose 50 % in Water (Syg) 50 ML SYRINGE IVP PRN (07:30)
[2019-01-02] MEDS ORDERED: Dextrose Gel 15 GM/37.5 ML TUBE PO PRN ×2 (07:30)
[2019-01-02] MEDS ORDERED: Dextrose 4 GM Chewable Tablets PO PRN ×2 (07:30)
[2019-01-02] MEDS ORDERED: D5% in Water 1,000 ML IVC PRN (07:30)
[2019-01-02] MEDS: Budesonide/Formoterol 160/4.5 1 PUFF INH IH SCH ×2 (07:45→21:32)
[2019-01-02] MEDS: Furosemide 40 MG TABLET PO SCH ×2 (08:45→16:03)
[2019-01-02] MEDS: FLUoxetine 20 MG CAPSULE PO SCH (08:45)
[2019-01-02] MEDS: Folic Acid 1 MG TABLET PO SCH (08:46)
[2019-01-02] MEDS: Multivit/Ca/Min/Fe/FA 1 TAB TABLET PO SCH (08:46)
[2019-01-02] MEDS: Insulin LISPRO 300 UNITS/3 ML VIAL SQ SCH ×3 (08:46→18:36)
[2019-01-02] MEDS: Gabapentin 300 MG CAPSULE PO SCH ×3 (08:46→21:11)
[2019-01-02] MEDS ORDERED: cloNIDine HCl 0.1 MG TABLET PO PRN (10:19)
--- NOTE | 2019-01-02 13:09 | Internal Med History&Physical ---
Addendum entered and electronically signed by Valerio Shields MD 01/02/19 13:20: I have personally performed a face to face evaluation on this patient. I have r eviewed and agree with the care plan. History and Exam by me shows: Patient with out 4 days of worsening dyspnea and cough. The cough was nonproductive. She did have sweats but no fevers. She had aching in her low tail bone area but she is not sure why. She has no fall or injury. Overnight, she has some improvement in her breathing, states that she is coughing more and is producing a whitish phlegm. She still feels worse than she did undergo week ago but better than 2 or 3 days ago. She has been non-compliant with her BiPAP, because of mask issue at home. She notes that her left lower extremity is nearly opened up again. She has not had wound care since August of last year. She has no new injury or symptoms other than excoriation in the pretibial area. Remainder of her history and physical are unchanged. Please see below. Patient has no complaint of chest discomfort, dyspnea, orthopnea, breathing problems, palpitations, nausea or vomiting, constipation or diarrhea, other changes in bowel habits, heartburn, difficulty with urination, kidney problems or kidney stones, fevers chills or sweats, rash or itching, seizures, headache or lightheadedness, heat or cold intolerance, blood problems or anemia, or other new complaints, except as mentioned above. Review of systems is otherwise negative. Examination: (Except as mentioned above): General: In no apparent distress, alert and oriented 3. Head: Atraumatic and normocephalic. Eyes: Extraocular muscles are intact, pupils equal round and reactive to light and accommodation. Sclerae anicteric. Ears: External ears are normal to inspection and hearing is grossly normal. Nose: Patent without lesion noted. Mouth: No intraoral lesions seen. Dentition is unremarkable. Neck: Supple with trachea midline. There is no thyromegaly or adenopathy and carotids are 2+ without bruit heard. Respiratory: No use of accessory muscles. Lungs are are noted to have diffuse mild sonorous rhonchi. No rales or egophony. Airflow is mildly diminished. Cardiovascular: Regular rate and rhythm without murmur appreciated. Abdomen: Bowel sounds are normal. No hepatosplenomegaly masses or tenderness. Morbidly obese and therefore difficult to palpate deeply. Extremities: No cyanosis clubbing or edema. Neurological: A and O 3. Cranial nerves II through XII are intact. No focal deficits and no abnormal movements or postures. Skin: Warm and non-diaphoretic with no lesions noted. She has excoriated areas of pretibial area with one area that is superficially open, about 1 cm in diameter. Breasts, pelvic and rectal: Not examined. She has COPD exacerbation, we will treat with antibiotics and steroids, IV. She has compensated severe respiratory acidosis with metabolic alkalosis. I have again asked that she be compliant with her BiPAP and have asked respiratory to evaluate for a mask, while here. We will admit her hopes that we can send her home in a day or so. We will ask wound care to evaluate again for consideration of compression dressing and/or Unna boot. I think this is related to venous insufficiency because of her morbid obesity. Original Note: Date of Encounter: 01/02/19 Time of Encounter: 13:07 Assessment and Plan (1) COPD exacerbation Current visit: Yes Status: Acute Continue IV antibiotics and steroids. Continue BiPAP. Continue nebulizer treatments and inhaled meds. Continue oxygen. Maintain sets greater than 92%. Monitor. (2) Venous (peripheral) insufficiency Current visit: Yes Status: Chronic Consult wound to evaluate and treat. (3) Hypertension Current visit: Yes Status: Chronic Controlled with current medication. Monitor blood pressure. Qualifiers: Hypertension type: essential hypertension Qualified Code(s): I10 - Essential (primary) hypertension (4) Diabetes mellitus Current visit: Yes Status: Chronic Continue insulin. Monitor fingerstick blood sugars. Will adjust medicines as necessary. 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 Villa is a 58 year old female admitted with COPD exacerbation. Has home oxygen, nebulizers in CPAP. States she has not been wearing CPAP due to mask missing a piece. States she has had increased shortness of breath with productive cough over the past 5 days. Denies fever, chills, nausea vomiting or diarrhea. Denies chest pain. States shortness of breath is improving. Past medical history includes: arthritis, asthma, CHF, COPD, diabetes, GERD, hyperlipidemia, hypertension, osteoporosis, venous stasis, anxiety and depression lives at home alone but does have family nearby. Past Med Surg Social Fam HX - Past Medical History Medical history: arthritis, asthma, CHF, COPD, diabetes, GERD, hyperlipidemia, hypertension, osteoporosis, venous stasis, other Additional medical history: DVT x2 LLE Psychiatric history: anxiety, depression - Past Surgical History Surgical History: other Additional surgical history: BILATERAL HEEL SX, TUBAL LIGATION - Social History Smoking Status: Former smoker Smokeless Tobacco Status: No Alcohol use: none Drug use: none - Family History Brother Living Status: Father Living Status: Mother Living Status: Hx Family Respiratory Disorders: Yes Internal Medicine - H&P: Meds Albuterol Neb [Proventil Neb] 2.5 mg IH QID 04/10/18 [History] Albuterol Sulfate [Albuterol Inhaler] 2 puff IH Q4HR PRN 04/10/18 [History] Cyclobenzaprine [Flexeril] 10 mg PO TID 04/10/18 [History] Esomeprazole Magnesium [Nexium] 20 mg PO DAILY 04/10/18 [History] FLUoxetine HCl [Fluoxetine HCl] 40 mg PO DAILY 04/10/18 [History] Fluticasone/Salmeterol [Advair 100-50 Diskus] 1 each IH BID 04/10/18 [History] Folic Acid 1 mg PO DAILY 04/10/18 [History] Furosemide [Lasix] 80 mg PO BID 04/10/18 [History] Gabapentin [Neurontin] 300 mg PO TID 04/10/18 [History] Insulin Human Regular [HumuLIN R] 0 unit SQ TID 04/10/18 [History] Ipratropium Neb [Atrovent Neb] 0.5 mg IH Q6HR 04/10/18 [History] Levothyroxine Sodium [Tirosint] 75 mcg PO DAILY 04/10/18 [History] Losartan Potassium [Cozaar] 50 mg PO DAILY 04/10/18 [History] Metoprolol [Lopressor] 50 mg PO BID 04/10/18 [History] Montelukast [Singulair] 10 mg PO DAILY 04/10/18 [History] Multivitamin [One Daily Essential] 1 each PO DAILY 04/10/18 [History] Oxycodone HCl/Acetaminophen [Percocet 7.5-325 mg Tablet] 1 each PO QID 04/10/18 [History] Promethazine [Phenergan] 25 mg PO BID PRN 04/10/18 [History] Insulin LISPRO [HumaLOG] 30 units SQ BID 01/01/19 [History] Allergy/AdvReac Type Severity Reaction Status Date / Time cetirizine [From [facility]] Allergy Swelling Verified 01/01/19 22:42 to upper extremities codeine AdvReac Nausea Verified 01/01/19 19:21 lisinopril AdvReac Cough Verified 01/01/19 19:21 All Systems PM: A 10-system review of systems was performed and is negative for pertinent findings except as documented above in the HPI. - Constitutional Constitutional: no chills, no fever(s), no night sweats - EENT Eyes: no change in vision, no discharge, no pain, no photophobia Ears: no ear discharge, no ear pain, no tinnitus Nose, mouth and throat: no dysphagia, no nasal discharge, no neck pain, no sore throat - Cardiovascular Cardiovascular ROS IM: no chest pain, no diaphoresis, no dyspnea, no lightheadedness, no palpitations, no syncope - Respiratory Respiratory: no cough, no dyspnea, no wheezing, no excessive phlegm production - Gastrointestinal Gastrointestinal: no abdominal pain, no diarrhea, no hematemesis, no hematochezia, no melena, no nausea, no vomiting - Genitourinary Genitourinary: no change in urinary stream, no dysuria, no flank pain, no hematuria - Musculoskeletal Musculoskeletal ROS IM: no numbness, no tingling - Integumentary Integumentary IM: no rash, no unusual bruising - Neurological Neurological ROS: no confusion, no convulsions, no focal weakness, no numbness, no tingling, no tremor(s) - Hematologic/Lymphatic Hematologic/Lymphatic: no easy bruising - Constitutional Vitals: Temp Pulse Resp BP Pulse Ox 98.1 F 81 20 163/82 90 01/02/19 10:52 01/02/19 10:52 01/02/19 10:52 01/02/19 10:52 01/02/19 10:52 General appearance: Present: A&O X 3, morbidly obese, pleasant, no acute distress, answers questions appropriately - Head Head exam: Present: atraumatic, normocephalic - Eye Eye exam: Present: PERRL, conjuntiva pink, sclera anicteric Pupils: Present: PERRL - Neck Neck exam general surgery: Present: supple, trachea midline. Absent: lymphadenopathy - Respiratory Respiratory exam: Present: rhonchi, wheezes. Absent: accessory muscle use, rales Additional comments: Expiratory wheezes and rhonchi scattered bilateral lobes. - Cardiovascular Cardiovascular exam: Present: RRR, +S1, +S2. Absent: diastolic murmur, gallop, rubs, systolic murmur - GI/Abdominal GI/Abdominal exam: Present: normal bowel sounds, soft, no peritoneal signs. Absent: distended, tenderness - Extremities Exam Extremities exam: Present: warm, radial pulses palpable and symmetrical. Absent: calf tenderness, cyanotic, pedal edema - Neurological Exam Neurological exam: Present: CN II-XII intact, oriented X3, no focal deficits. Absent: pronater drift, facial droop, speech deficit - Skin Skin exam: Present: dry, intact Additional comments: Left lower extremity scaley and red. chronic venous stasis Internal Med - H&P Results - Labs CBC & Chem 7: 01/01/19 17:24 01/01/19 17:24 Labs: Short CBC 01/01/19 Range/Units 17:24 WBC 9.0 (4.3-11.1) K/mcL Hgb 13.5 (11.5-15.4) g/dL Hct 43.3 (35.3-44.9) % Plt Count 226 (140-400) K/mcL Neutrophils # 5.9 (1.6-8.9) K/mcL BMP 01/01/19 17:24 Sodium 139 Potassium 4.3 Chloride 96 L Carbon Dioxide 41 H* BUN 11 Creatinine 0.63 Glucose 228 H Calcium 9.2 Cardiac Enzymes 01/01/19 Range/Units 17:24 Troponin I < 0.03 (< 0.04) ng/mL Liver Function 01/01/19 Range/Units 17:24 Total Bilirubin 0.3 (0.3-1.0) mg/dL Direct Bilirubin 0.0 (0.0-0.2) mg/dL AST 13 (13-39) Units/L ALT 14 (7-52) Units/L Alkaline Phosphatase 130 H (34-104) Units/L Albumin 4.0 (3.5-5.7) g/dL - ABG Interpretation ABG results: 01/01/19 17:58 ABG pH 7.34 ABG pCO2 75 H* ABG pO2 138 H ABG HCO3 40 H ABG Total CO2 43 H ABG O2 Saturation 99 H ABG Base Excess 11 H - Impressions ITS Impressions Chest X-Ray 01/01/19 17:14 IMPRESSION: Mildly prominent pulmonary vasculature may represent pulmonary vascular congestion. D/ / Jake Aguilar MD / Jake Aguilar MD Interpreting Provider: Jake Aguilar MD
--- NOTE | 2019-01-02 19:25 | Electrocardiograph Report ---
[address] [address] Test Date: 2019-01-01 Pat Name: India Villa Department: EDG4 Room: 115 Gender: F Financial Consultant: : 1960 Requested By: David Astudillo Order Number: [id number] Reading MD: Mary Obrien Measurements Intervals [place] Rate: 77 P: [place]: QRS: 78 QRSD: 106 T: 89 QT: 400 QTc: 450 Interpretive Statements Artifact limits interpretation Sinus rhythm Electronically Signed On 01-02-2019 19:24:44 EST by Mary Obrien
[2019-01-02] MEDS ORDERED: Insulin LISPRO 300 UNITS/3 ML VIAL SQ SCH (21:00)
[2019-01-02] MEDS: Melatonin 3 MG TABLET PO SCH (21:11)
[2019-01-03] MEDS: Albuterol 2.5 MG/3 ML NEBULIZER IH SCH ×4 (00:35→11:03)
[2019-01-03] MEDS: *HR* OxyCODONE/APAP 7.5/325 TABLET PO SCH ×2 (04:09→08:20)
[2019-01-03] MEDS: Ipratropium/Albuterol Neb 3 ML IH SCH ×2 (04:10→09:58)
[2019-01-03] MEDS: *HR* Enoxaparin 40 MG/0.4 ML SYRINGE SQ SCH (06:08)
[2019-01-03 08:20] VITALS: BP 162/83
[2019-01-03] MEDS: FLUoxetine 20 MG CAPSULE PO SCH (08:21)
[2019-01-03] MEDS: Folic Acid 1 MG TABLET PO SCH (08:21)
[2019-01-03] MEDS: Multivit/Ca/Min/Fe/FA 1 TAB TABLET PO SCH (08:21)
[2019-01-03] MEDS: Gabapentin 300 MG CAPSULE PO SCH (08:21)
[2019-01-03] MEDS: Furosemide 40 MG TABLET PO SCH (08:21)
[2019-01-03] MEDS: Insulin LISPRO 300 UNITS/3 ML VIAL SQ SCH (08:21)
--- NOTE | 2019-01-03 09:40 | Discharge Summary ---
Addendum entered and electronically signed by Valerio Shields MD 01/03/19 12:50: I have personally performed a face to face evaluation on this patient. I have r eviewed and agree with the care plan. History and Exam by me shows: Patient is without complaint. She states that she is ready to go home. She is feeling like she is coughing or phlegm that is actually feeling better in terms of shortness of breath, etc. She has no fevers or chills. She is otherwise doing well. She needs a follow-up as an outpatient with wound care and we would agree. She was seen yesterday by wound care and they put her in a compression dressing. Discussed care with other providers and/or nursing. Patient has no complaint of chest discomfort, dyspnea, orthopnea, palpitations, nausea or vomiting, constipation or diarrhea, other changes in bowel habits, difficulty with urination, rash or itching, or other new complaints, except as mentioned above. Review of systems is otherwise negative. Examination: (Except as mentioned above): General: In no apparent distress. Alert and oriented 3. Nondiaphoretic. Head: Atraumatic and normocephalic. Respiratory: No use of accessory muscles. Lungs are clear throughout. Normal airflow. Cardiovascular: Regular rate and rhythm without murmur appreciated. Abdomen: Bowel sounds are normal. No hepatosplenomegaly mass or tenderness appreciated. Morbidly obese and therefore difficult to palpate deeply. Patient is examined upright in chair and this also limits exam. Extremities: No cyanosis clubbing or edema. Left lower extremity is in a compression dressing. There is no cord or calf tenderness. Skin: Warm and non-diaphoretic with no new lesions noted. Original Note: Orders not resulted at time of discharge: Pending orders 01/01/19 17:24 Culture,Blood [BC] Stat Date of Encounter: 01/03/19 Time of Encounter: 09:35 - Discharge Diagnosis (1) Acute on chronic respiratory failure with hypoxia and hypercapnia Priority: Primary Status: Resolved Comments: Patient presented to the emergency department with exacerbation of COPD. Patient is admission PCO2 was 75. Patient had stated increased shortness of breath with productive cough or past 5 days. Over the past 48 hours patient has had IV antibiotics and nebulizer treatments. Patient was placed on BiPAP at [facility]. Today patient states that her respiratory effort has improved, although she continues to be short of breath with exertion. Lungs have slight wheeze her to upper ford and diminished lower ford. Patient states she continues to have productive cough with a light green sputum received. Patient states that she feels much better and is requesting discharge to home. Patient has remained afebrile. Patient is to continue current medications and follow-up with PCP after discharge (2) Diabetes mellitus Priority: Secondary Status: Chronic Comments: Patients glucose has been fairly well-controlled with most readings less than 170 on fingersticks. 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 Villa is a 58 year old female , who presented to emergency department with exacerbation of COPD. Patient had stated that she had had 5 days of increasing dyspnea and productive cough with a thick green sputum received. Initial chest x-ray showed no acute infectious process. Patient was placed on IV antibiotics for possible bronchitis and given bronchodilators through nebulizer treatments. Patient was placed on BiPAP at night. Patient reportedly uses a CPAP at home but has not been compliant with its use, stating that she has a broken mask that has prevented her from being able to use. Patient showed improvement over the next 48 hours and today states that she feels much better. Respiratory effort appears relaxed. Patient does have slight expiratory wheezes heard to the upper ford and diminished breath sounds to lower half. Patient's breath sounds are distant, most likely due to her obesity. Patient has a history of CHF, but has denied any chest discomforts or palpitations. Patient does continue to have +2 edema to the bilateral lower legs with left greater than right. Left leg does have a wrap in place and patient states that she has a small weeping open wound to the left anterior leg. Patient states that she has seen in wound care in the past and has requested to be evaluated by wound care. Patient is diabetic and her glucoses been fairly well controlled with most fingersticks less than 170 during her stay. Patient is to continue follow-up with her PCP within one week after discharge. Discharge discussed with: patient Time spent discussing smoking cessation with patient: 3 to 10 minutes - Time Spent with Patient Total time spent providing and/or coordinating discharge services: Time spent: Less than 30 minutes - Discharge Medications Prescriptions: New cephALEXin [Keflex] 500 mg PO QID 10 Days #40 capsule No Action Insulin Human Regular [HumuLIN R] 0 unit SQ TID Multivitamin [One Daily Essential] 1 each PO DAILY Levothyroxine Sodium [Tirosint] 75 mcg PO DAILY Oxycodone HCl/Acetaminophen [Percocet 7.5-325 mg Tablet] 1 each PO QID Furosemide [Lasix] 80 mg PO BID FLUoxetine HCl [Fluoxetine HCl] 40 mg PO DAILY Montelukast [Singulair] 10 mg PO DAILY Metoprolol [Lopressor] 50 mg PO BID Losartan Potassium [Cozaar] 50 mg PO DAILY Gabapentin [Neurontin] 300 mg PO TID Folic Acid 1 mg PO DAILY Cyclobenzaprine [Flexeril] 10 mg PO TID Albuterol Sulfate [Albuterol Inhaler] 2 puff IH Q4HR PRN PRN Reason: Shortness Of Breath Ipratropium Neb [Atrovent Neb] 0.5 mg IH Q6HR Fluticasone/Salmeterol [Advair 100-50 Diskus] 1 each IH BID Promethazine [Phenergan] 25 mg PO BID PRN PRN Reason: Nausea Albuterol Neb [Proventil Neb] 2.5 mg IH QID Esomeprazole Magnesium [Nexium] 20 mg PO DAILY Insulin LISPRO [HumaLOG] 30 units SQ BID Home Medications: Albuterol Neb [Proventil Neb] 2.5 mg IH QID 04/10/18 [History] Albuterol Sulfate [Albuterol Inhaler] 2 puff IH Q4HR PRN 04/10/18 [History] Cyclobenzaprine [Flexeril] 10 mg PO TID 04/10/18 [History] Esomeprazole Magnesium [Nexium] 20 mg PO DAILY 04/10/18 [History] FLUoxetine HCl [Fluoxetine HCl] 40 mg PO DAILY 04/10/18 [History] Fluticasone/Salmeterol [Advair 100-50 Diskus] 1 each IH BID 04/10/18 [History] Folic Acid 1 mg PO DAILY 04/10/18 [History] Furosemide [Lasix] 80 mg PO BID 04/10/18 [History] Gabapentin [Neurontin] 300 mg PO TID 04/10/18 [History] Insulin Human Regular [HumuLIN R] 0 unit SQ TID 04/10/18 [History] Ipratropium Neb [Atrovent Neb] 0.5 mg IH Q6HR 04/10/18 [History] Levothyroxine Sodium [Tirosint] 75 mcg PO DAILY 04/10/18 [History] Losartan Potassium [Cozaar] 50 mg PO DAILY 04/10/18 [History] Metoprolol [Lopressor] 50 mg PO BID 04/10/18 [History] Montelukast [Singulair] 10 mg PO DAILY 04/10/18 [History] Multivitamin [One Daily Essential] 1 each PO DAILY 04/10/18 [History] Oxycodone HCl/Acetaminophen [Percocet 7.5-325 mg Tablet] 1 each PO QID 04/10/18 [History] Promethazine [Phenergan] 25 mg PO BID PRN 04/10/18 [History] Insulin LISPRO [HumaLOG] 30 units SQ BID 01/01/19 [History] cephALEXin [Keflex] 500 mg PO QID 10 Days #40 capsule 01/03/19 [Rx] Allergies/Adverse Reactions: Allergy/AdvReac Type Severity Reaction Status Date / Time cetirizine [From [facility]] Allergy Swelling Verified 01/01/19 22:42 to upper extremities codeine AdvReac Nausea Verified 01/01/19 19:21 lisinopril AdvReac Cough Verified 01/01/19 19:21 Date of admission: 01/02/19 12:27 Primary care physician: Kadie Hurtado Consults: 01/02/19 11:20 Consult to Wound Care [CONS] Routine Reason for Consult: Chronic venous stasis, nearly open. Call Completed: No Discharging clinician: Valerio Shields - Constitutional Vitals: Temp Pulse Resp BP Pulse Ox 97.6 F 76 18 162/83 93 01/03/19 08:11 01/03/19 08:11 01/03/19 08:11 01/03/19 08:19 01/03/19 08:11 General appearance: Present: A&O X 3, morbidly obese, pleasant, no acute distress, answers questions appropriately - Head Head exam: Present: atraumatic, normocephalic - Eye Eye exam: Present: PERRL, conjuntiva pink, sclera anicteric Pupils: Present: PERRL - Neck Neck exam general surgery: Present: supple, trachea midline. Absent: lymphadenopathy - Respiratory Respiratory exam: Present: CTAB, wheezes. Absent: accessory muscle use, rales, rhonchi Additional comments: Lungs are fairly clear throughout upper ford. Patient does have slight expiratory wheeze her to upper ford with diminished breath sounds to lower half. Breath sounds to lower ford are distant most likely secondary to her obesity. Patient continues with productive cough with thick green sputum received. Respiratory effort appears relaxed while at rest. - Cardiovascular Cardiovascular exam: Present: RRR, +S1, +S2. Absent: diastolic murmur, gallop, rubs, systolic murmur - GI/Abdominal GI/Abdominal exam: Present: normal bowel sounds, soft, no peritoneal signs. Absent: distended, tenderness - Extremities Exam Extremities exam: Present: pedal edema, warm, radial pulses palpable and symmetrical. Absent: calf tenderness, cyanotic Additional comments: Patient continues to have +2 edema to bilateral lower legs with left greater than right. Patient has a wrap applied to her left leg. - Neurological Exam Neurological exam: Present: CN II-XII intact, oriented X3, no focal deficits. Absent: pronater drift, facial droop, speech deficit - Skin Skin exam: Present: dry, intact - Patient Status Disposition: Home, Self-Care Condition: Good Functional capacity at discharge: independent ambulation Overall status at discharge: patient is progressing back to baseline - Discharge Instructions Instructions: Chronic Obstructive Pulmonary Disease (DC) Follow Up With: Kadie Hurtado MD [Primary Care Provider] - 01/08/19 1:45 pm Forms: ED Satisfaction Letter Additional Instructions: Follow-up appointments: If there is not an appointment listed below, please call your physician and schedule a follow-up appointment. If you have congestive heart failure and your symptoms return, make an appointment with your physician. Medication List: Carry an up to date list of medications you are taking at all time. We have given you an updated medication list including any new medications that you have been prescribed. Please provide that list to your primary provider Symptoms: If your condition changes or you experience any of the following symptoms, notify your physician immediately: Unusual or worsening pain, fever, persistent nausea and vomiting, bleeding, increase in swelling (especially in your legs), sudden weight gain, extreme dizziness, chest pain, increased drainage or redness from a wound or incision. Go to the emergency department if you experience a problem with breathing. Weights: If you have a history of swelling or shortness of breath, weigh yourself daily and notify your physician if you have a weight gain of two or more pounds in one day or 5 or more pounds in a week. If you experience any of the warning signs for stroke: Sudden numbness or weakness of the face, arm or leg; especially on one side of the body, sudden confusion, trouble speaking or understanding, sudden trouble seeing in one or both eyes, sudden trouble walking, dizziness, loss of balance or coordination, sudden sever headache with no cause; Call 911 or go to the emergency room. Stroke is a medical emergency. Some risk factors for stroke: Age, cigarette smoking, diabetes, excessive alcohol consumption, family history, high blood pressure, overweight, physical inactivity, prior stroke, heart attack, diagnosis of carotid artery stenosis or other artery disease. If you smoke, STOP: Smoking or tobacco use significantly increases your risk of heart and lung disease. Your chance of disease greatly increases if you continue to smoke. For more information, call the [place] tobacco quit line for smoking cessation 3-951-YFLF-NOW ( ) - Diet and Activity Activity: ambulate only with your walker, increase activity as tolerated Diet: diabetic diet
[2019-01-03] MEDS: Budesonide/Formoterol 160/4.5 1 PUFF INH IH SCH (09:59)
== END 2019-01-03 12:05 | disposition home or self-care (01) | DRG 140 ==
LOC: EMEROOGRE 17:06 → INPGRE 17:06